=== PATIENT | female | born 1970 | race African-American/Black ===

== ENCOUNTER 2017-08-16 16:06 | Emergency (ER) | payer BC, SELFPAY ==
[2017-08-16] MEDS ORDERED: Morphine 10 MG/ML VIAL ONE (17:32)
[2017-08-16] MEDS ORDERED: Ondansetron ODT 4 MG TAB ONE (17:32)
[2017-08-16 19:47] LABS: Bilirubin Negative (Negative); Blood, Urine Negative (Negative); Clarity CLOUDY (Clear); Glucose, Urine (Dipstick) Negative (Negative); Leukocyte Moderate (Negative); Nitrite Negative (Negative); Protein, Urine (Dipstick) Negative (Neg-Trace); Specific Gravity, Urine 1.021 (1.002-1.036); Urobilinogen 0.2 mg/dL (0.2-1.0)
[2017-08-16 19:48] LABS: Pregnancy Test - Urine (BHCG) Negative (Negative); Pregu Control Background? CLEAR/WHITE (CLR/WHITE); Pregu Control Bar Appear? YES (CONTROL BAR); Specific Gravity 1.021 (1.002-1.036)
[2017-08-16 19:49] LABS: Bacteria/HPF 1+ HPF (None Seen); Hyaline Casts/LPF 7-10 HYALINE CAST LPF (0-3 Hyaline); Pathc Cast-AUWi Flag 0.54 (0-2.49)
== END 2017-08-16 20:20 | disposition home or self-care (01) ==
LOC: ERS 16:06
DX: N39.0 Urinary tract infection, site not specified (principal); I10 Essential (primary) hypertension; D64.9 Anemia, unspecified; Z79.82 Long term (current) use of aspirin; Z79.899 Other long term (current) drug therapy
CPT/HCPCS: 81003; 81015; 81025; 96372; J2270; Q0162

== ENCOUNTER 2017-08-24 12:25 | Emergency (ER) | payer SELFPAY | END 2017-08-24 15:36 | disposition home or self-care (01) | LOC: ERS 12:25 | DX: M54.42 Lumbago with sciatica, left side (principal); I10 Essential (primary) hypertension; X58.XXXA Exposure to other specified factors, initial encounter; Y93.G1 Activity, food preparation and clean up | CPT/HCPCS: 99281 ==

== ENCOUNTER 2017-12-03 21:32 | Emergency (ER) | payer SELFPAY ==
--- NOTE | 2017-12-03 22:35 | RAD ---
RADIOGRAPH RIGHT KNEE 4 VIEWS: DATE: 12/03/17 HISTORY: 47-year-old female with right knee pain. COMPARISON: None. FINDINGS: No fracture or dislocation. No joint effusion. No edema in Hoffa's fat pad. Patellofemoral compartment: Moderate DJD. Medial compartment: Severe joint space narrowing, moderate to large osteophytes, and at least mild sc lerosis. Lateral compartment: Joint space maintained. Moderate osteophytosis. The differences in joint spaces of the medial and lateral compartments result in varus angulation. Th ere is mild chronic lateral subluxation of the tibia relative to the femur. IMPRESSION: 1. Tricompartmental osteoarthrosis, worst in the medial compartment where it is severe. 2. Genu varus. POS: [facility]
[2017-12-03] MEDS ORDERED: Ketorolac Tromethamine 60 MG/2 ML VIAL ONE (22:51)
== END 2017-12-03 22:59 | disposition home or self-care (01) ==
LOC: ERS 21:32
DX: M17.11 Unilateral primary osteoarthritis, right knee (principal); I10 Essential (primary) hypertension; D64.9 Anemia, unspecified
CPT/HCPCS: 96372; J1885

== ENCOUNTER 2018-01-05 16:52 | Emergency (ER) | payer SELFPAY ==
--- NOTE | 2018-01-05 19:33 | RAD ---
PORTABLE CHEST ONE VIEW 01/05/18 at 7:10 p.m. HISTORY: Syncope. FINDINGS: Comparison is made with the exam of 11/16/13. The heart size is normal. The aorta is tortuous. The lungs are well expanded without focal areas of c onsolidation, pneumothoraces, abdirizak pulmonary edema or pleural effusions. IMPRESSION: No radiographic evidence of acute cardiopulmonary process. POS: [facility]
[2018-01-05 19:39] LABS: #Eosinphils 0.1 thou/uL (0.0-0.7); #Lymphocytes 3.4 thou/uL (1.20-3.40); #Monocytes 0.8 thou/uL (0.11-0.59); %Basophils 0.3 % (0.0-1.0); %Lymphocytes 27.7 % (21.0-51.0); %Monocytes 6.3 % (0.0-10.0); %Neutrophils 64.7 % (42.0-75.0); Hemoglobin 11.1 g/dL (12.0-16.0); Mean Corpuscular HGB CONC 31.6 g/dL (32.0-36.0); Mean Corpuscular Hemoglobin 22.9 pg (27.0-31.0); Mean Corpuscular Volume 72.5 fL (78.0-98.0); Mean Platelet Volume 11.7 fL (7.4-10.4); Platelet Count 253 thou/uL (130-400); RBC Distribution Width 16.7 % (11.5-14.5); Red Blood Cell (RBC) Count 4.87 mill/uL (4.20-5.40); White Blood Cell (WBC) Count 12.4 thou/uL (4.8-10.8)
[2018-01-05 19:54] LABS: ALT (SGPT) 14 U/L (8-55); AST (SGOT) 10 U/L (5-34); Albumin 4.2 g/dL (3.5-5.0); Alkaline Phosphatase 71 U/L (40-150); Anion Gap 15 mmol/L (10-20); BUN (Urea Nitrogen) 15 mg/dL (7.0-18.7); Bilirubin, Total 0.3 mg/dL (0.2-1.2); Calc. Creatinine Clearance 0 mL/min (70-130); Calcium 9.4 mg/dL (7.8-10.44); Carbon Dioxide 21 mmol/L (22-29); Chloride 107 mmol/L (98-107); Estimated GFR-MDRD Greater than 90; Globulin 3.3 g/dL (2.4-3.5); Glucose 89 mg/dL (70-105); Potassium 3.4 mmol/L (3.5-5.1); Protein, Total 7.5 g/dL (6.0-8.3); Sodium 140 mmol/L (136-145)
[2018-01-05 19:57] LABS: CKMB 1.1 ng/mL (0-6.6); Troponin I Less than 0.010 ng/mL (< 0.028)
[2018-01-05 19:59] LABS: Anisocytosis SLIGHT = 6-15 cells (100X) (0-5/hpf); Elliptocytes SLIGHT = 2-5 cells (100X) (0-1/hpf); Hypochromia SLIGHT = 6-15 cells (100X) (0-5/hpf); Large Platelets SLIGHT; MDiff Complete? YES; Microcytosis SLIGHT = 6-15 cells (100X) (0-5/hpf); Ovalocytes SLIGHT = 2-5 cells (100X) (0-1/hpf); PLT Morphology Comment Appears Adequate; Poikilocytosis SLIGHT = 6-15 cells (100X) (0-5/hpf); Polychromasia SLIGHT = 2-3 cells (100X) (0-2/hpf); Schistocytes SLIGHT = 2-5 cells (100X) (0-1/hpf)
[2018-01-05] MEDS ORDERED: HYDROcodone/Acetaminophen 5/325 mg Tablet ONE (20:33)
--- NOTE | 2018-01-05 20:36 | RAD ---
LUMBAR SPINE THREE VIEWS: 01/05/18 HISTORY: Low back pain after fall. FINDINGS/IMPRESSION: There are postop changes with posterior spinal fusion at L4-5 level with intradiscal prosthesis as we ll. Degenerative changes are present in the lower lumbar spine. No acute fracture or subluxation is seen. The metallic hardware is intact. POS: [facility]
[2018-01-05] MEDS ORDERED: Ondansetron ODT 4 MG TAB ONE (21:18)
--- NOTE | 2018-01-05 21:31 | RAD ---
LEFT HIP TWO VIEWS: 01/05/18 HISTORY: Left hip pain. fall. FINDINGS/IMPRESSION: Bony detail is suboptimal. No definite fracture or dislocation is seen. If there is concern for fract ure, further evaluation with CT scan should be performed. POS: [facility]
== END 2018-01-05 22:02 | disposition home or self-care (01) ==
LOC: ERS 16:52
DX: M54.5 Low back pain (principal); I10 Essential (primary) hypertension; D64.9 Anemia, unspecified
CPT/HCPCS: 36415; 71045; 72100; 80053; 82553; 84484; 85025; 93005; 96372; J2270; Q0162

== ENCOUNTER 2018-06-03 07:07 | Emergency (ER) | payer SELFPAY ==
[2018-06-03] MEDS ORDERED: Hydrochlorothiazide 25 MG TAB PO SCH (08:30)
[2018-06-03] MEDS ORDERED: Acetaminophen 500 MG TAB ONE (08:39)
--- NOTE | 2018-06-03 09:02 | RAD ---
LEFT KNEE FOUR VIEWS: History: Fall. Left knee pain. FINDINGS/IMPRESSION: Moderate-severe degenerative changes are present, also seen on the exam of 09-14-14. No fracture or dis location is identified. POS: [facility]
== END 2018-06-03 09:35 | disposition home or self-care (01) ==
LOC: ERS 07:07
DX: S83.92XA Sprain of unspecified site of left knee, initial encounter (principal); I10 Essential (primary) hypertension; D64.9 Anemia, unspecified; Z79.899 Other long term (current) drug therapy; X50.1XXA Overexertion from prolonged static or awkward postures, initial encounter

== ENCOUNTER 2018-10-29 19:51 | Emergency (ER) | payer SELFPAY ==
--- NOTE | 2018-10-29 20:50 | RAD ---
4 views left knee. HISTORY: Left knee pain after injury. AP, lateral and both oblique views left knee obtained. Severe left knee osteoarthritic changes seen. This involves the anterior, medial and lateral compartm ents. No evidence of acute fractures seen. IMPRESSION: left knee osteoarthritis.
== END 2018-10-29 21:20 | disposition home or self-care (01) ==
LOC: ERS 19:51
DX: S86.912A Strain of unspecified muscle(s) and tendon(s) at lower leg level, left leg, initial encounter (principal); M17.12 Unilateral primary osteoarthritis, left knee; I10 Essential (primary) hypertension; D64.9 Anemia, unspecified; Z79.899 Other long term (current) drug therapy; X50.9XXA Other and unspecified overexertion or strenuous movements or postures, initial encounter; Y93.01 Activity, walking, marching and hiking

== ENCOUNTER 2020-03-08 21:13 | Inpatient (IN) | payer OTHER ==
[2020-03-08 23:06] VITALS: BMI 49.5
[2020-03-08] MEDS ORDERED: Electrolyte Replacement Protoc 1 EACH EACH IVPB SCH (23:57)
[2020-03-09] MEDS ORDERED: Acetaminophen 650 MG/20.3 ML UDCUP PO PRN (00:06)
--- NOTE | 2020-03-09 00:08 | PDOC.HHP ---
Hospitalist HPI - History of Present Illness Oxygen desaturation History of Present Illness: 50-year-old -[place] woman with a history of anemia, chronic low back pain, osteoarthritis of the knee had a left total [facility]. Patient was supposed to have revision of the TKR done tomorrow but she became hypoxic. Checks x-ray demonstrated bilateral infiltrates. CTA thorax performed showed no evidence of pulmonary embolism but it did demonstrate bilateral infiltrates. There was a concern for COVID infection. Patient was requiring about 4 L of oxygen. She was therefore transferred here for further management. Patient seen and examined in the IMCU. She denied any shortness of breath. She denied any cough. She denied any fever or chills or chest pain. She is currently saturating at 100% on 4 L of oxygen. Hospitalist ROS - Review of Systems Other: She reports pain in the left knee. Except as documented, all other systems reviewed and negative. Hospitalist History - Past Medical History Cardiac: reports: CHF Heme/Onc: reports: Anemia NOS Musculoskeletal: reports: Chronic low back pain, Osteoarthritis - Past Surgical History Past Surgical History: reports: Hernia Repair, Total Knee Replacement, Other (Ad enoidectomy) - Family History Family History: reports: cardiac disorder, diabetes mellitus, hypertension - Social History Smoking Status: Never smoker Alcohol: reports: None Drugs: reports: none Living Situation: With Family - Exam General Appearance: NAD, awake alert Eye: PERRL, anicteric sclera ENT: normocephalic atraumatic, moist mucosa Neck: supple, symmetric, no JVD Heart: RRR, no murmur Respiratory: CTAB, no wheezes, no rales Gastrointestinal: soft, non-tender, non-distended Extremities: no cyanosis, no edema Skin: normal turgor Skin - other findings: Clean left total knee replacement surgical wound. Neurological: cranial nerve grossly intact, no focal deficits Musculoskeletal: normal tone Musculoskeletal - other findings: Left total knee replacement Hospitalist Results - Labs Additional comment: Hemoglobin 8.9 Potassium 2.6. Creatinine 1. - Radiology Interpretation Chest x-ray Status: report reviewed by me (Bilateral lung opacification, pulmonary vascular congestion with cephalization.) Hospitalist H&P A/P - Problem (1) Acute respiratory failure with hypoxia Code(s): J96.01 - ACUTE RESPIRATORY FAILURE WITH HYPOXIA Status: Acute Assessment and Plan: Possible causes: COVID-19 pneumonia, congestive heart failure or bacterial pneumonia. Noted patient prior echocardiogram in 2013 suggested EF of 40 to 45%, cardiomegaly and mildly reduced systolic function. Repeat echocardiogram on 02/16/2020 reported EF of 55 to 60%. (2) Bilateral pneumonia Code(s): J18.9 - PNEUMONIA, UNSPECIFIED ORGANISM Status: Acute (3) COVID-19 ruled out Code(s): Z03.818 - ENCNTR FOR OBS FOR SUSP EXPSR TO [facility] BIOL[facility] AGENTS RULED OUT Status: Acute (4) Status post total knee replacement Code(s): Z96.659 - PRESENCE OF UNSPECIFIED ARTIFICIAL KNEE JOINT Status: Acute (5) Hypokalemia Code(s): E87.6 - HYPOKALEMIA Status: Acute (6) Acute blood loss anemia Code(s): D62 - ACUTE POSTHEMORRHAGIC ANEMIA Status: Acute (7) Obesity, Class III, BMI 40-49.9 (morbid obesity) Code(s): E66.01 - MORBID (SEVERE) OBESITY DUE TO EXCESS CALORIES Status: Acute - Plan Plan: Admit to [facility] Oxygen supplementation. Obtain rapid COVID-19 test. Given congestive heart failure is high on the differential diagnosis, will empirically treat with IV Lasix. Check ESR, ferritin level, procalcitonin and CRP. Start IV Solu-Medrol Bronchodilators. Monitor and correct electrolytes. Consult to pulmonary. Monitor H&H and transfuse PRN for hemoglobin less than 8. Pain management as needed for TKR Consult orthopedic surgery for recommendation regarding mobility and timing of revision of TKR
[2020-03-09 01:28] LABS: Lactic Acid 0.6 mmol/L (0.5-2.2)
[2020-03-09 01:31] LABS: Anion Gap 14 mmol/L (10-20); BUN (Urea Nitrogen) 8 mg/dL (7.0-18.7); Calc. Creatinine Clearance 225 mL/min (70-130); Calcium 7.5 mg/dL (7.8-10.44); Carbon Dioxide 27 mmol/L (22-29); Chloride 104 mmol/L (98-107); Estimated GFR-MDRD Greater than 90; Glucose 114 mg/dL (70-105); Potassium 3.5 mmol/L (3.5-5.1); Sodium 141 mmol/L (136-145)
[2020-03-09] MEDS: Vancomycin 1 GM in Premix Bag 1 BAG IVPB SCH ×2 (01:43→15:24)
[2020-03-09] MEDS: methylPREDNISolone Sod Succ 40 MG VIAL IVP SCH ×4 (01:44→17:41)
[2020-03-09 02:04] LABS: SARS-CoV-2 NAA Rapid Test DETECTED (NotDetected)
[2020-03-09] MEDS: Furosemide 40 MG/4 ML VIAL SLOW IVP SCH ×2 (06:14→15:24)
[2020-03-09] MEDS ORDERED: Potassium Chloride 40 MEQ in Sodium Chloride 0.9% 250 ML 250 ML IVPB SCH ×2 (06:30→09:00)
--- NOTE | 2020-03-09 07:58 | RAD ---
EXAM: CHEST ONE VIEW HISTORY: Covid positive. COMPARISON: 03/08/2020 FINDINGS: Cardiac silhouette is magnified by projection and patient rotation but does appear mildly enlarged. T here are patchy areas of increased opacity in a peripheral predominance within the lungs bilaterally greater at the lung bases and right upper lung zone. Findings are worrisome for viral pne umonitis. No pleural effusion is seen. There are patchy increased opacities within each perihilar region as well. No other interval change. IMPRESSION: Patchy opacities within the lungs bilaterally worrisome for viral pneumonitis (Covid 19).
--- NOTE | 2020-03-09 08:48 | PDOC.HOSPP ---
- Subjective Encounter Date: 03/09/20 Encounter Time: 08:47 Subjective: Ms. Radford was seen today in follow-up of COVID pneumonia. She does not know where she was exposed. She says she started having cough abd shortness of breath yesterday. She was recently released from the hospital on March 06, after having a knee replacement done. - Objective Vital Signs & Weight: Vital Signs (12 hours) Pulse Ox 03/08/20 23:57 96 03/08/20 23:51 87 L Weight Weight 345 lb Most Recent Monitor Data Heart Rate from ECG 82 NIBP 126/85 NIBP BP-Mean 98 Respiration from ECG 22 SpO2 100 I&O: 03/08/20 03/09/20 03/10/20 06:59 06:59 06:59 Intake Total 540 Output Total 500 Balance 40 Result Diagrams: 03/09/20 00:58 Hospitalist ROS - Medication Medications: Active Medications Generic Name Dose Route Start Last Admin Trade Name Freq PRN Reason Stop Dose Admin Furosemide 40 mg 03/09/20 06:00 03/09/20 06:14 Furosemide 40 Mg/4 Ml Vial SLOW IVP 03/09/20 14:01 40 mg 0600,1400 NAHED Administration Levofloxacin 500 mg/ Device 100 mls @ 100 mls/hr 03/08/20 01:00 03/09/20 01:43 IVPB 100 mls Q24HR NAHED Administration Vancomycin HCl 1 gm/ Device 200 mls @ 200 mls/hr 03/09/20 02:00 03/09/20 01:43 IVPB 200 mls 0200,1400 NAHED Administration Methylprednisolone Sodium Succinate 40 mg 03/08/20 23:59 03/09/20 06:14 Methylprednisolone Sod Succ 40 Mg Vial IVP 40 mg Q6HR NAHED Administration - Exam Eye: PERRL, anicteric sclera Heart: RRR, no murmur, no gallops, no rubs, normal peripheral pulses Respiratory: rales (+ bibasilar rales, no wheezing or rhonchi) Gastrointestinal: soft, non-tender, non-distended, normal bowel sounds, no palpable masses, no hepatomegaly Extremities: no cyanosis, no edema Hosp A/P (1) Bilateral pneumonia Code(s): J18.9 - PNEUMONIA, UNSPECIFIED ORGANISM Status: Acute (2) Acute respiratory failure with hypoxia Code(s): J96.01 - ACUTE RESPIRATORY FAILURE WITH HYPOXIA Status: Acute (3) Hypertension Code(s): I10 - ESSENTIAL (PRIMARY) HYPERTENSION Status: Acute (4) COVID-19 virus infection Code(s): U07.1 - COVID-19 Status: Acute (5) Degenerative arthritis of lumbar spine Code(s): M47.816 - SPONDYLOSIS W/O MYELOPATHY OR RADICULOPATHY, LUMBAR REGION Status: Acute (6) Obesity, Class III, BMI 40-49.9 (morbid obesity) Code(s): E66.01 - MORBID (SEVERE) OBESITY DUE TO EXCESS CALORIES Status: Acute - Plan * Acute respiratory failure with hypoxemia due to COVID pneumonia. Continue s upportive care. Continue IV Steroids * Continue empiric treatment for superimposed bacterial pneumonia * She has an elevated D-Dimer- so will place on the intensified DVT Prophylaxis * HTN- blood pressure is stable- will re-start her home medications * DJD with recent left TKR- continue supportive care
[2020-03-09] MEDS: Enoxaparin Sodium 40 MG/0.4 ML SYRINGE SC SCH ×2 (09:37→21:53)
[2020-03-09] MEDS: Famotidine/PF 20 mg/2ml Vial SLOW IVP SCH ×2 (09:37→21:53)
[2020-03-09] MEDS: Bupropion 150 MG XL TAB PO SCH (09:37)
--- NOTE | 2020-03-09 10:17 | CON ---
DATE OF CONSULTATION: 03/09/2020 This is a 50-minute time, of that time greater than 50% spent with the patient and/or the patient's unit in the hospital. REASON FOR CONSULTATION: COVID-19 pneumonia. HISTORY OF PRESENT ILLNESS: The patient is a pleasant 50-year-old female, who had a knee replacement done a couple of days ago at the [facility]. She apparently developed some hypoxia in the postop period while staying in the hospital there. She tells me she was staying in the hospital there because a second operation is needed on the knee. Upon transfer here, she was requiring about 4 L nasal cannula. COVID test was positive. She has diffuse bilateral infiltrates on the x-ray. Surprisingly, she is doing quite well otherwise. PAST MEDICAL HISTORY: 1. Congestive heart failure. 2. Hypertension. 3. Osteoarthritis. 4. Anemia. PAST SURGICAL HISTORY: 1. Hernia repair. 2. Left total knee replacement. 3. Tonsillectomy and adenoidectomy. SOCIAL HISTORY: She lives alone. She is a never smoker. Does not consume alcohol. Does not use illicit drugs. MEDICATIONS: Prior to admission; 1. Trazodone. 2. Lisinopril/hydrochlorothiazide. 3. Bupropion. ALLERGIES: NONE. REVIEW OF SYSTEMS: Twelve-point review of systems is otherwise negative. PHYSICAL EXAMINATION: VITAL SIGNS: Temperature 98, pulse 82, blood pressure 126/85, O2 saturation 100% on 3 L. GENERAL: She is awake, alert, and in no distress. HEENT: Unremarkable. NECK: No adenopathy or JVD. LUNGS: She has some fine inspiratory crackles bilaterally. CARDIAC: S1 and S2. Regular. ABDOMEN: Soft, obese, nontender, and nondistended. EXTREMITIES: No clubbing, cyanosis, or edema. LABORATORY DATA: C-reactive protein is 19. Ferritin 413. D-dimer 3.0. Sodium 141, potassium 3.5, chloride 104, CO2 of 27, BUN 8, creatinine 0.7, and glucose 114. Chest x-ray shows diffuse bilateral infiltrates. ASSESSMENT: COVID-19 pneumonia with hypoxemia. PLAN: 1. I would keep her on the steroids. Additionally, I think she would be a candidate for Remdesivir, she seems to be early in the disease process. 2. Anticoagulate - she may need a higher dose than which she is currently given. 3. Monitor closely as she has severe risk factors for decompensation including obesity and hypertension. Job ID: [id number]
[2020-03-09 10:55] LABS: ALT (SGPT) 21 U/L (8-55); AST (SGOT) 25 U/L (5-34); Albumin 3.6 g/dL (3.5-5.0); Alkaline Phosphatase 60 U/L (40-110); Bilirubin, Direct 0.2 mg/dL (0.1-0.3); Bilirubin, Total 0.4 mg/dL (0.2-1.2); Protein, Total 6.8 g/dL (6.0-8.3)
[2020-03-09] MEDS: Lisinopril/Hydrochlorothiazide 20/25 mg Tablet PO SCH (11:30)
[2020-03-09] MEDS ORDERED: REMDESIVIR (EUA) 200 MG in Sodium Chloride 0.9% 250 ML 210 ML IV SCH (13:15)
[2020-03-09] MEDS: HYDROcodone/Acetaminophen 5/325 mg Tablet PO PRN (17:41)
[2020-03-09] MEDS ORDERED: FLU VACC QS2020-21(6MOS UP)/PF 60 MCG/0.5 ML SYRINGE IM ONE (21:00)
[2020-03-09] MEDS: traZODone HCl 50 MG TAB PO SCH (21:53)
[2020-03-10 00:45] LABS: Lactic Acid 0.8 mmol/L (0.5-2.2)
[2020-03-10] MEDS: methylPREDNISolone Sod Succ 40 MG VIAL IVP SCH ×4 (01:06→18:17)
[2020-03-10] MEDS: Vancomycin 1 GM in Premix Bag 1 BAG IVPB SCH ×2 (01:07→14:23)
[2020-03-10 04:00] LABS: ALT (SGPT) 17 U/L (8-55); AST (SGOT) 17 U/L (5-34); Albumin 3.4 g/dL (3.5-5.0); Alkaline Phosphatase 56 U/L (40-110); Band 9 % (5-11); Bilirubin, Direct 0.2 mg/dL (0.1-0.3); Bilirubin, Total 0.4 mg/dL (0.2-1.2); Elliptocytes MODERATE= 6-15 cells (100X) (0-1/hpf); Hemoglobin 9.5 g/dL (12.0-16.0); Lymphocytes 9 % (21-51); MDiff Complete? YES; Mean Corpuscular HGB CONC 31.1 g/dL (32.0-36.0); Mean Corpuscular Hemoglobin 22.4 pg (27.0-31.0); Mean Corpuscular Volume 71.8 fL (78.0-98.0); Microcytosis SLIGHT = 6-15 cells (100X) (0-5/hpf); Monocytes 4 % (0-10); Neutrophil 78 % (42-75); Platelet Count 136 thou/uL (130-400); Platelet Morphology Comment Appears Adequate; Protein, Total 6.7 g/dL (6.0-8.3); RBC Distribution Width 17.9 % (11.5-14.5); Red Blood Cell (RBC) Count 4.26 mill/uL (4.20-5.40); White Blood Cell (WBC) Count 8.7 thou/uL (4.8-10.8)
[2020-03-10 04:08] LABS: ALT (SGPT) 17 U/L (8-55); AST (SGOT) 16 U/L (5-34); Albumin 3.5 g/dL (3.5-5.0); Alkaline Phosphatase 57 U/L (40-110); Anion Gap 15 mmol/L (10-20); BUN (Urea Nitrogen) 14 mg/dL (7.0-18.7); Bilirubin, Total 0.4 mg/dL (0.2-1.2); Calc. Creatinine Clearance 213 mL/min (70-130); Calcium 8.3 mg/dL (7.8-10.44); Carbon Dioxide 28 mmol/L (22-29); Chloride 101 mmol/L (98-107); Estimated GFR-MDRD Greater than 90; Globulin 3.2 g/dL (2.4-3.5); Glucose 139 mg/dL (70-105); Potassium 3.6 mmol/L (3.5-5.1); Protein, Total 6.7 g/dL (6.0-8.3); Sodium 140 mmol/L (136-145)
[2020-03-10] MEDS: Bupropion 150 MG XL TAB PO SCH (08:11)
[2020-03-10] MEDS: Famotidine/PF 20 mg/2ml Vial SLOW IVP SCH ×2 (08:11→21:02)
[2020-03-10] MEDS: Enoxaparin Sodium 40 MG/0.4 ML SYRINGE SC SCH ×2 (08:12→21:02)
[2020-03-10] MEDS ORDERED: Non-Formulary Item 1 EACH (Remdesivir 200 MG) IV SCH (09:00)
[2020-03-10] MEDS: Lisinopril/Hydrochlorothiazide 20/25 mg Tablet PO SCH (09:19)
[2020-03-10] MEDS: HYDROcodone/Acetaminophen 5/325 mg Tablet PO PRN (09:51)
[2020-03-10] MEDS ORDERED: HYDROcodone/Chlorphen Polis 5 ML UDCUP PO PRN (11:06)
--- NOTE | 2020-03-10 11:41 | PRG ---
DATE OF SERVICE: 03/10/2020 SUBJECTIVE: She is doing reasonably well except for cough. OBJECTIVE: VITAL SIGNS: Temperature 98.8, pulse 80, blood pressure 120/91, and O2 saturation in the mid 90s on 4 L nasal cannula. HEENT: Unremarkable. NECK: No adenopathy or JVD. LUNGS: Inspiratory crackles bilaterally. CARDIAC: S1, S2. Regular. ABDOMEN: Soft. EXTREMITIES: Brace over her left knee. LABORATORY DATA: White blood cell count 8.7, hematocrit 30, and platelet count 136. D-dimer 3.1. Sodium 140, potassium 3.6, chloride 101, CO2 of 28, BUN 14, creatinine 0.7, glucose 139, ferritin 328. C-reactive protein 17. ASSESSMENT: COVID-19 pneumonia. PLAN: 1. Continue steroids, anticoagulation, and supplemental oxygen. 2. Continue remdesivir. Job ID: [id number]
[2020-03-10] MEDS: Diabetic Tussin 200 MG/10 ML UDCUP PO PRN (14:22)
[2020-03-10] MEDS: REMDESIVIR (EUA) 100 MG in Sodium Chloride 0.9% 250 ML 230 ML IV SCH (14:23)
--- NOTE | 2020-03-10 16:08 | PDOC.HOSPP ---
- Subjective Encounter Date: 03/10/20 Encounter Time: 16:00 Subjective: f/u for COVID-19 PNA on 2L/min NC receiving Remdesivir/Lovenox/Levaquin/Vancomycin/Solumedrol. + coughing - Objective Vital Signs & Weight: Vital Signs (12 hours) Temp 03/10/20 09:00 98.8 F Weight Weight 336 lb 12.8 oz Most Recent Monitor Data Heart Rate from ECG 77 NIBP 144/95 NIBP BP-Mean 111 Respiration from ECG 26 SpO2 100 I&O: 03/09/20 03/10/20 03/11/20 06:59 06:59 06:59 Intake Total 540 Output Total 578 5530 450 Balance 40 -4230 -450 Result Diagrams: 03/10/20 03:27 03/10/20 03:27 Additional Labs: Laboratory Tests 03/09/20 03/09/20 03/09/20 00:15 00:58 00:58 ESR Westergren D-Dimer 3.07 H Ferritin C-Reactive Protein 19.67 H SARS-CoV-2 Rap RNA(RT-PCR) DETECTED A* 03/09/20 03/10/20 03/10/20 00:58 00:11 00:11 ESR Westergren 71 75 D-Dimer Ferritin C-Reactive Protein 18.88 H SARS-CoV-2 Rap RNA(RT-PCR) 03/10/20 03/10/20 03/10/20 00:11 00:11 03:27 ESR Westergren D-Dimer 2.90 H Ferritin 382.09 H C-Reactive Protein 17.03 H SARS-CoV-2 Rap RNA(RT-PCR) 03/10/20 03/10/20 03:27 03:27 ESR Westergren D-Dimer 3.17 H Ferritin 328.05 H C-Reactive Protein SARS-CoV-2 Rap RNA(RT-PCR) Radiology Reviewed by me: Yes (PCXR - patchy infiltrates bilat) EKG Reviewed by me: Yes (Tele - SR) Hospitalist ROS - Medication Medications: Active Medications Generic Name Dose Route Start Last Admin Trade Name Freq PRN Reason Stop Dose Admin Hydrocodone Bitart/Acetaminophen 1 tab 03/09/20 17:22 03/10/20 09:51 Hydrocodone/Acetaminophen 5/325 Mg Tablet PO 1 tab Q4H PRN Administration Moderate to Severe Pain (6-10) Bupropion HCl 150 mg 03/09/20 09:00 03/10/20 08:11 Bupropion 150 Mg Xl Tab PO 150 mg DAILY NAHED Administration Enoxaparin Sodium 40 mg 03/09/20 09:00 03/10/20 08:12 Enoxaparin Sodium 40 Mg/0.4 Ml Syringe SC 40 mg 0900,2100 NAHED Administration Famotidine 20 mg 03/09/20 09:00 03/10/20 08:11 Famotidine/Pf 20 Mg/2ml Vial SLOW IVP 20 mg Q12HR NAHED Administration Guaifenesin 300 mg 03/10/20 12:02 03/10/20 14:22 Diabetic Tussin 200 Mg/10 Ml Udcup PO 300 mg Q4H PRN Administration COUGH/CONGESTION Lisinopril/HCTZ 1 tab 03/09/20 09:00 03/10/20 09:19 Lisinopril/Hydrochlorothiazide 20/25 Mg Tablet PO 1 tab DAILY NAHED Administration Levofloxacin 500 mg/ Device 100 mls @ 100 mls/hr 03/08/20 01:00 03/10/20 01:07 IVPB 100 mls Q24HR NAHED Administration Vancomycin HCl 1 gm/ Device 200 mls @ 200 mls/hr 03/09/20 02:00 03/10/20 14:23 IVPB 200 mls 0200,1400 NAHED Administration Remdesivir 100 mg/ Sodium 250 mls @ 250 mls/hr 03/10/20 13:15 03/10/20 14:23 Chloride IV 03/13/20 14:14 250 mls Q24H NAHED Administration Methylprednisolone Sodium Succinate 40 mg 03/08/20 23:59 03/10/20 12:23 Methylprednisolone Sod Succ 40 Mg Vial IVP 40 mg Q6HR NAHED Administration Sodium Chloride 10 ml 03/09/20 09:00 03/10/20 08:12 Flush - Normal Saline 10 Ml Syringe IVF 10 ml Q12HR NHAED Administration Trazodone HCl 50 mg 03/09/20 21:00 03/09/20 21:53 Trazodone Hcl 50 Mg Tab PO 50 mg HS NAHED Administration - Exam General Appearance: NAD, awake alert Eye: PERRL, anicteric sclera ENT: normocephalic atraumatic, no oropharyngeal lesions Neck: supple, symmetric, no JVD, no thyromegaly, no lymphadenopathy Heart: RRR, no murmur, no gallops, no rubs, normal peripheral pulses Heart - other findings: S1, S2 Respiratory: tachypneic Respiratory - other findings: few scattered rhonchi Gastrointestinal: soft, non-tender, non-distended, normal bowel sounds, no pal pable masses Extremities: no cyanosis Extremities - other findings: L knee with surgical changes Skin: normal turgor Neurological: cranial nerve grossly intact, no new deficit Musculoskeletal: normal tone, normal strength, no muscle wasting Psychiatric: normal affect, A&O x 3 Hosp A/P (1) Pneumonia due to COVID-19 virus Code(s): U07.1 - COVID-19; J12.89 - OTHER VIRAL PNEUMONIA Status: Acute Plan: Continue Remdesivir/Lovenox/Solumedrol/O2/Levaquin/Vancomycin, isolation protocol, add Albuterol MDI (2) Acute respiratory failure with hypoxia Code(s): J96.01 - ACUTE RESPIRATORY FAILURE WITH HYPOXIA Status: Acute Plan: See above (3) Hypertension Code(s): I10 - ESSENTIAL (PRIMARY) HYPERTENSION Status: Chronic Qualifiers: Hypertension type: essential hypertension Qualified Code(s): I10 - Essential (primary) hypertension Plan: Continue Lisinopril/HCTZ (4) Obesity, Class III, BMI 40-49.9 (morbid obesity) Code(s): E66.01 - MORBID (SEVERE) OBESITY DUE TO EXCESS CALORIES Status: Chronic (5) Status post total knee replacement Code(s): Z96.659 - PRESENCE OF UNSPECIFIED ARTIFICIAL KNEE JOINT Status: Acute Qualifiers: Laterality: left Qualified Code(s): Z96.652 - Presence of left artificial knee joint Plan: continue routine joint replacement protocol, NWB on LLE per Ortho - Plan continue antibiotics, PT/OT, medical social consultant, respiratory therapy, out of bed/ambulate, DVT proph w/SCDs Continue pulmonary support O2 via NC Add Albuterol MDI Continue Remdesivir/Lovenox/Solumedrol Robitussin DM 15ml po q4h PRN Isolation protocol AM lab: CMP, CBC, CRP, Ferrtin, D-dimer
[2020-03-10] MEDS ORDERED: Albuterol 200 PUFF (6.7GM INHALER) INH PRN (16:53)
[2020-03-10] MEDS: traZODone HCl 50 MG TAB PO SCH (21:02)
[2020-03-11] MEDS: methylPREDNISolone Sod Succ 40 MG VIAL IVP SCH ×4 (01:13→18:17)
[2020-03-11] MEDS: Vancomycin 1 GM in Premix Bag 1 BAG IVPB SCH ×2 (01:14→14:49)
[2020-03-11 04:13] LABS: ALT (SGPT) 14 U/L (8-55); AST (SGOT) 12 U/L (5-34); Albumin 3.4 g/dL (3.5-5.0); Alkaline Phosphatase 52 U/L (40-110); Anion Gap 14 mmol/L (10-20); BUN (Urea Nitrogen) 20 mg/dL (7.0-18.7); Bilirubin, Direct 0.2 mg/dL (0.1-0.3); Bilirubin, Total 0.5 mg/dL (0.2-1.2); Calc. Creatinine Clearance 193 mL/min (70-130); Calcium 8.5 mg/dL (7.8-10.44); Carbon Dioxide 30 mmol/L (22-29); Chloride 99 mmol/L (98-107); Estimated GFR-MDRD 87; Globulin 3.2 g/dL (2.4-3.5); Glucose 130 mg/dL (70-105); Potassium 3.5 mmol/L (3.5-5.1); Protein, Total 6.6 g/dL (6.0-8.3); Sodium 139 mmol/L (136-145)
[2020-03-11 04:18] LABS: Band 2 % (5-11); Hemoglobin 9.7 g/dL (12.0-16.0); Hypochromia SLIGHT = 6-15 cells (100X) (0-5/hpf); Lymphocytes 26 % (21-51); MDiff Complete? YES; Mean Corpuscular HGB CONC 31.4 g/dL (32.0-36.0); Mean Corpuscular Hemoglobin 22.5 pg (27.0-31.0); Mean Corpuscular Volume 71.7 fL (78.0-98.0); Mean Platelet Volume 13.5 fL (7.4-10.4); Monocytes 1 % (0-10); Neutrophil 71 % (42-75); Platelet Count 198 thou/uL (130-400); Platelet Morphology Comment Appears Adequate; RBC Distribution Width 17.9 % (11.5-14.5); Red Blood Cell (RBC) Count 4.32 mill/uL (4.20-5.40); White Blood Cell (WBC) Count 8.5 thou/uL (4.8-10.8)
[2020-03-11] MEDS ORDERED: Potassium Chloride 20 MEQ TAB PO SCH (06:30)
[2020-03-11] MEDS: Famotidine/PF 20 mg/2ml Vial SLOW IVP SCH ×2 (08:02→21:36)
[2020-03-11] MEDS: Enoxaparin Sodium 40 MG/0.4 ML SYRINGE SC SCH ×2 (08:02→21:36)
[2020-03-11] MEDS: Cholecalciferol (Vitamin D3) 400 UNITS TAB PO SCH (08:03)
[2020-03-11] MEDS: Bupropion 150 MG XL TAB PO SCH (08:03)
[2020-03-11] MEDS: Ascorbic Acid 500 mg Chewable Tablet PO SCH (08:03)
[2020-03-11] MEDS: Lisinopril/Hydrochlorothiazide 20/25 mg Tablet PO SCH (08:04)
[2020-03-11] MEDS: Zinc Sulfate 220 MG CAP PO SCH (08:13)
--- NOTE | 2020-03-11 10:08 | CON ---
DATE OF CONSULTATION: 03/10/2020 Ms. Radford recently underwent a left total knee replacement. The patient has additional work that needs to be done on her total knee. She developed hypoxemia the day after surgery, and a chest x-ray and CAT scan showed the patient developed COVID pneumonia. She was transferred to [facility] where she is now being taken care of by the boring machine operator, Dr. Mark. The patient has a cough, but otherwise is feeling okay. PLAN: The patient will require additional surgery on the left knee, but she will need to sufficiently recover from the COVID pneumonia before she undergoes general anesthetic and additional surgery on the knee; that will probably be a minimum of 1 week and possibly even 2 weeks, but we will keep track of her, and we will proceed with the left knee surgery when appropriate. Job ID: [id number]
[2020-03-11] MEDS ORDERED: Ondansetron PF 4 MG/2 ML Vial IVP PRN (10:16)
--- NOTE | 2020-03-11 11:46 | PRG ---
DATE OF SERVICE: 03/11/2020 SUBJECTIVE: The patient is doing quite well. Has no complaints. OBJECTIVE: VITAL SIGNS: O2 saturations 100% on 3 L, blood pressure 135/80, pulse 77, respirations 20. HEENT: Unremarkable. NECK: No adenopathy or JVD. CHEST: Clear to auscultation. CARDIAC: S1 and S2. Regular. ABDOMEN: Soft. EXTREMITIES: No edema. LABORATORY DATA: White blood cell count 8.5, hematocrit 31, and platelet count 198. D-dimer 3.02. C-reactive protein is down to 8. Sodium 139, potassium 3.5, chloride 99, CO2 of 30, BUN 20, creatinine 0.8, glucose 130. ASSESSMENT: 1. COVID-19 pneumonia. 2. Acute hypoxic respiratory failure. 3. Status post left knee replacement. PLAN: She can be transferred up to the [facility] telemetry unit. She will continue steroids, anticoagulation. She should be done with her remdesivir in 2 more days. Job ID: [id number]
[2020-03-11 11:50] LABS: SARS-CoV-2 IgG Ab Non-Reactive (NonReactive); SARS-CoV-2 IgG Index 0.24 S/CO (< 1.40)
[2020-03-11] MEDS: REMDESIVIR (EUA) 100 MG in Sodium Chloride 0.9% 250 ML 230 ML IV SCH (14:15)
[2020-03-11] MEDS: HYDROcodone/Acetaminophen 5/325 mg Tablet PO PRN (14:49)
--- NOTE | 2020-03-11 16:05 | PDOC.HOSPP ---
- Subjective Encounter Date: 03/11/20 Encounter Time: 15:45 Subjective: f/u for COVID-19 PNA and resp failure on O2 @ 3L/min. States SOB with mild movement or activity but overall feels better. Receiving Remdesivir/Lovenox/Solumedol. - Objective Vital Signs & Weight: Vital Signs (12 hours) Temp Pulse Resp BP BP Pulse Ox 03/11/20 12:50 98.8 F 79 22 H 114/58 L 90 L 03/11/20 08:04 67 126/88 03/11/20 08:00 100 03/11/20 05:11 95 Weight Weight 336 lb Most Recent Monitor Data Heart Rate from ECG 79 NIBP 144/120 NIBP BP-Mean 128 Respiration from ECG 31 SpO2 100 I&O: 03/10/20 03/11/20 03/12/20 06:59 06:59 06:59 Intake Total 240 100 Output Total 4230 1500 400 Balance -4230 -1260 -300 Result Diagrams: 03/11/20 03:33 03/11/20 03:33 Additional Labs: Laboratory Tests 03/09/20 03/09/20 03/09/20 00:15 00:58 00:58 ESR Westergren D-Dimer 3.07 H Ferritin C-Reactive Protein 19.67 H SARS-CoV-2 Rap RNA(RT-PCR) DETECTED A* 03/09/20 03/10/20 03/10/20 00:58 00:11 00:11 ESR Westergren 71 75 D-Dimer Ferritin C-Reactive Protein 18.88 H SARS-CoV-2 Rap RNA(RT-PCR) 03/10/20 03/10/20 03/10/20 00:11 00:11 03:27 ESR Westergren D-Dimer 2.90 H Ferritin 382.09 H C-Reactive Protein 17.03 H SARS-CoV-2 Rap RNA(RT-PCR) 03/10/20 03/10/20 03:27 03:27 ESR Westergren D-Dimer 3.17 H Ferritin 328.05 H C-Reactive Protein SARS-CoV-2 Rap RNA(RT-PCR) EKG Reviewed by me: Yes (Tele - SR) Hospitalist ROS - Medication Medications: Active Medications Generic Name Dose Route Start Last Admin Trade Name Freq PRN Reason Stop Dose Admin Hydrocodone Bitart/Acetaminophen 1 tab 03/09/20 17:22 03/11/20 14:49 Hydrocodone/Acetaminophen 5/325 Mg Tablet PO 1 tab Q4H PRN Administration Moderate to Severe Pain (6-10) Albuterol Sulfate 2 puff 03/10/20 16:53 03/10/20 21:22 Albuterol 200 Puff (6.7gm Inhaler) INH 2 puff [id number] PRN Administration Wheezing Ascorbic Acid 1,000 mg 03/11/20 09:00 03/11/20 08:03 Ascorbic Acid 500 Mg Chewable Tablet PO 1,000 mg DAILY NAHED Administration Bupropion HCl 150 mg 03/09/20 09:00 03/11/20 08:03 Bupropion 150 Mg Xl Tab PO 150 mg DAILY NAHED Administration Cholecalciferol 400 units 03/11/20 09:00 03/11/20 08:03 Cholecalciferol (Vitamin D3) 400 Units Tab PO 400 units DAILY NAHED Administration Enoxaparin Sodium 40 mg 03/09/20 09:00 03/11/20 08:02 Enoxaparin Sodium 40 Mg/0.4 Ml Syringe SC 40 mg 0900,2100 NAHED Administration Famotidine 20 mg 03/09/20 09:00 03/11/20 08:02 Famotidine/Pf 20 Mg/2ml Vial SLOW IVP 20 mg Q12HR NAHED Administration Guaifenesin 300 mg 03/10/20 12:02 03/10/20 14:22 Diabetic Tussin 200 Mg/10 Ml Udcup PO 300 mg Q4H PRN Administration COUGH/CONGESTION Lisinopril/HCTZ 1 tab 03/09/20 09:00 03/11/20 08:04 Lisinopril/Hydrochlorothiazide 20/25 Mg Tablet PO 1 tab DAILY NAHED Administration Levofloxacin 500 mg/ Device 100 mls @ 100 mls/hr 03/08/20 01:00 03/11/20 01:13 IVPB 100 mls Q24HR NAHED Administration Vancomycin HCl 1 gm/ Device 200 mls @ 200 mls/hr 03/09/20 02:00 03/11/20 14:49 IVPB 200 mls 0200,1400 NAHED Administration Remdesivir 100 mg/ Sodium 250 mls @ 250 mls/hr 03/10/20 13:15 03/11/20 14:15 Chloride IV 03/13/20 14:14 250 mls Q24H NAHED Administration Methylprednisolone Sodium Succinate 40 mg 03/08/20 23:59 03/11/20 11:56 Methylprednisolone Sod Succ 40 Mg Vial IVP 40 mg Q6HR NAHED Administration Ondansetron HCl 4 mg 03/11/20 10:16 03/11/20 10:28 Ondansetron Pf 4 Mg/2 Ml Vial IVP 4 mg Q4H PRN Administration Nausea/Vomiting Sodium Chloride 10 ml 03/09/20 09:00 03/11/20 08:05 Flush - Normal Saline 10 Ml Syringe IVF 10 ml Q12HR NAHED Administration Trazodone HCl 50 mg 03/09/20 21:00 03/10/20 21:02 Trazodone Hcl 50 Mg Tab PO 50 mg HS NAHED Administration Zinc Sulfate 220 mg 03/11/20 09:00 03/11/20 08:13 Zinc Sulfate 220 Mg Cap PO 220 mg DAILY NAHED Administration - Exam General Appearance: NAD, awake alert Eye: PERRL, anicteric sclera ENT: normocephalic atraumatic, no oropharyngeal lesions Neck: supple, symmetric, no JVD, no thyromegaly, no lymphadenopathy Heart: RRR, no murmur, no gallops, no rubs, normal peripheral pulses Heart - other findings: S1, S2 Respiratory: tachypneic Respiratory - other findings: diminished in bases, occ rhonchi Gastrointestinal: soft, non-tender, non-distended, normal bowel sounds, no palpable masses Gastrointestinal - other findings: obese Extremities: no cyanosis, no clubbing Extremities - other findings: L knee with post-surgical changes Skin: normal turgor Neurological: cranial nerve grossly intact, no new deficit Musculoskeletal: normal tone, generalized weakness Psychiatric: normal affect, A&O x 3 Hosp A/P (1) Pneumonia due to COVID-19 virus Code(s): U07.1 - COVID-19; J12.89 - OTHER VIRAL PNEUMONIA Status: Acute Plan: Continue Remdesivir/Solumedrol/Lovenox/Zinc/Vit C/Levaquin/Vancomycin (2) Acute respiratory failure with hypoxia Code(s): J96.01 - ACUTE RESPIRATORY FAILURE WITH HYPOXIA Status: Acute Plan: Continue O2 supplementation, may need home O2 (3) Hypertension Code(s): I10 - ESSENTIAL (PRIMARY) HYPERTENSION Status: Chronic Qualifiers: Hypertension type: essential hypertension Qualified Code(s): I10 - E ssential (primary) hypertension (4) Obesity, Class III, BMI 40-49.9 (morbid obesity) Code(s): E66.01 - MORBID (SEVERE) OBESITY DUE TO EXCESS CALORIES Status: Chronic (5) Status post total knee replacement Code(s): Z96.659 - PRESENCE OF UNSPECIFIED ARTIFICIAL KNEE JOINT Status: Acute Qualifiers: Laterality: left Qualified Code(s): Z96.652 - Presence of left artificial knee joint Plan: Pain control, NWB per Ortho - Plan continue antibiotics, PT/OT, 7th grade social studies teacher, respiratory therapy, DVT proph w/SCDs Continue pulmonary support O2 via NC Add Albuterol MDI Continue Remdesivir/Lovenox/Solumedrol Robitussin DM 15ml po q4h PRN Isolation protocol Continue Levaquin/Vancomycin AM lab: CMP, CBC, CRP, Ferrtin, D-dimer
[2020-03-11] MEDS: traZODone HCl 50 MG TAB PO SCH (21:37)
[2020-03-11] MEDS: Ibuprofen 600 MG TAB PO PRN (21:44)
[2020-03-12] MEDS: methylPREDNISolone Sod Succ 40 MG VIAL IVP SCH ×4 (00:41→18:58)
[2020-03-12] MEDS: HYDROcodone/Acetaminophen 5/325 mg Tablet PO PRN ×2 (01:25→20:23)
[2020-03-12 01:27] LABS: Vancomycin, Trough 8.3 ug/mL
[2020-03-12] MEDS: Vancomycin 1.5 GRAM/300 ML BAG 1.5 GM in Premix Bag 1 BAG IVPB SCH ×2 (02:02→15:23)
[2020-03-12 05:22] LABS: Band 9 % (5-11); Hemoglobin 9.7 g/dL (12.0-16.0); Lymphocytes 17 % (21-51); MDiff Complete? YES; Mean Corpuscular HGB CONC 31.3 g/dL (32.0-36.0); Mean Corpuscular Hemoglobin 22.3 pg (27.0-31.0); Mean Corpuscular Volume 71.2 fL (78.0-98.0); Mean Platelet Volume 12.4 fL (7.4-10.4); Metamyelocyte 1 % (0-0); Monocytes 5 % (0-10); Neutrophil 68 % (42-75); Platelet Count 223 thou/uL (130-400); Platelet Morphology Comment Appears Adequate; RBC Distribution Width 17.6 % (11.5-14.5); Red Blood Cell (RBC) Count 4.34 mill/uL (4.20-5.40); White Blood Cell (WBC) Count 8.6 thou/uL (4.8-10.8)
[2020-03-12 05:35] LABS: ALT (SGPT) 16 U/L (8-55); AST (SGOT) 11 U/L (5-34); Albumin 3.4 g/dL (3.5-5.0); Alkaline Phosphatase 47 U/L (40-110); Anion Gap 16 mmol/L (10-20); BUN (Urea Nitrogen) 26 mg/dL (7.0-18.7); Bilirubin, Direct 0.2 mg/dL (0.1-0.3); Bilirubin, Total 0.6 mg/dL (0.2-1.2); Calc. Creatinine Clearance 188 mL/min (70-130); Calcium 8.3 mg/dL (7.8-10.44); Carbon Dioxide 26 mmol/L (22-29); Chloride 101 mmol/L (98-107); Estimated GFR-MDRD 85; Glucose 139 mg/dL (70-105); Potassium 3.9 mmol/L (3.5-5.1); Protein, Total 6.4 g/dL (6.0-8.3); Sodium 139 mmol/L (136-145)
[2020-03-12] MEDS: Ascorbic Acid 500 mg Chewable Tablet PO SCH (08:17)
[2020-03-12] MEDS: Cholecalciferol (Vitamin D3) 400 UNITS TAB PO SCH (08:18)
[2020-03-12] MEDS: Zinc Sulfate 220 MG CAP PO SCH (08:18)
[2020-03-12] MEDS: Lisinopril/Hydrochlorothiazide 20/25 mg Tablet PO SCH (08:18)
[2020-03-12] MEDS: Bupropion 150 MG XL TAB PO SCH (08:18)
[2020-03-12] MEDS: Famotidine/PF 20 mg/2ml Vial SLOW IVP SCH ×2 (08:19→20:25)
[2020-03-12] MEDS: Enoxaparin Sodium 40 MG/0.4 ML SYRINGE SC SCH ×2 (08:19→20:25)
--- NOTE | 2020-03-12 10:40 | PRG ---
DATE OF SERVICE: 03/12/2020 SUBJECTIVE: The patient's records were reviewed. She is currently running O2 saturation of 100% on 4 L with a temperature of 98 and a blood pressure of 102/72. LABORATORY DATA: Labs indicate a white blood cell count of 8.6, hematocrit 30.9, and platelet count 223. D-dimer is down to 2.65. Sodium 139, potassium 3.9, BUN 26, creatinine 0.8, glucose 139. C-reactive protein is down to 3.7. ASSESSMENT: COVID-19 pneumonia with good response to remdesivir, steroids, and anticoagulation. PLAN: Her last day of remdesivir should be tomorrow. Continue steroids. Wean oxygen as tolerated. Job ID: [id number]
[2020-03-12] MEDS: REMDESIVIR (EUA) 100 MG in Sodium Chloride 0.9% 250 ML 230 ML IV SCH (14:04)
[2020-03-12] MEDS ORDERED: Senokot S 8.6-50 MG TAB PO SCH (16:00)
--- NOTE | 2020-03-12 16:02 | PDOC.HOSPP ---
- Subjective Encounter Date: 03/12/20 Encounter Time: 16:00 Subjective: f/u for COVID-19 PNA on O2 @ 3L/min NC. Feels good overall. No BM in about 3 days. - Objective Vital Signs & Weight: Vital Signs (12 hours) Temp Pulse Resp BP Pulse Ox 03/12/20 12:02 97.7 F 76 20 112/74 96 03/12/20 08:44 98.0 F 68 20 102/72 100 03/12/20 07:55 100 Weight Weight 336 lb Most Recent Monitor Data Heart Rate from ECG 79 NIBP 144/120 NIBP BP-Mean 128 Respiration from ECG 31 SpO2 100 I&O: 03/11/20 03/12/20 03/13/20 06:59 06:59 06:59 Intake Total 240 660 Output Total 1500 875 Balance -1260 -215 Result Diagrams: 03/12/20 04:38 03/12/20 04:38 Additional Labs: Accuchecks 03/12/20 12:13 POC Glucose 141 H Laboratory Tests 03/09/20 03/09/20 03/09/20 00:15 00:58 00:58 ESR Westergren D-Dimer 3.07 H Ferritin C-Reactive Protein 19.67 H Vancomycin Trough SARS-CoV-2 Rap RNA(RT-PCR) DETECTED A* 03/09/20 03/10/20 03/10/20 00:58 00:11 00:11 ESR Westergren 71 75 D-Dimer Ferritin C-Reactive Protein 18.88 H Vancomycin Trough SARS-CoV-2 Rap RNA(RT-PCR) 03/10/20 03/10/20 03/10/20 00:11 00:11 03:27 ESR Westergren D-Dimer 2.90 H Ferritin 382.09 H C-Reactive Protein 17.03 H Vancomycin Trough SARS-CoV-2 Rap RNA(RT-PCR) 03/10/20 03/10/20 03/12/20 03:27 03:27 01:04 ESR Westergren D-Dimer 3.17 H Ferritin 328.05 H C-Reactive Protein Vancomycin Trough 8.3 SARS-CoV-2 Rap RNA(RT-PCR) 03/12/20 03/12/20 03/12/20 04:38 04:38 04:38 ESR Westergren D-Dimer 2.65 H Ferritin 196.64 C-Reactive Protein 3.71 H Vancomycin Trough SARS-CoV-2 Rap RNA(RT-PCR) EKG Reviewed by me: Yes (Tele -SR) Hospitalist ROS - Medication Medications: Active Medications Generic Name Dose Route Start Last Admin Trade Name Freq PRN Reason Stop Dose Admin Hydrocodone Bitart/Acetaminophen 1 tab 03/09/20 17:22 03/12/20 01:25 Hydrocodone/Acetaminophen 5/325 Mg Tablet PO 1 tab Q4H PRN Administration Moderate to Severe Pain (6-10) Albuterol Sulfate 2 puff 03/10/20 16:53 03/10/20 21:22 Albuterol 200 Puff (6.7gm Inhaler) INH 2 puff [id number] PRN Administration Wheezing Ascorbic Acid 1,000 mg 03/11/20 09:00 03/12/20 08:17 Ascorbic Acid 500 Mg Chewable Tablet PO 1,000 mg DAILY NAHED Administration Bupropion HCl 150 mg 03/09/20 09:00 03/12/20 08:18 Bupropion 150 Mg Xl Tab PO 150 mg DAILY NAHED Administration Cholecalciferol 400 units 03/11/20 09:00 03/12/20 08:18 Cholecalciferol (Vitamin D3) 400 Units Tab PO 400 units DAILY NAHED Administration Enoxaparin Sodium 40 mg 03/09/20 09:00 03/12/20 08:19 Enoxaparin Sodium 40 Mg/0.4 Ml Syringe SC 40 mg 0900,2100 NAHED Administration Famotidine 20 mg 03/09/20 09:00 03/12/20 08:19 Famotidine/Pf 20 Mg/2ml Vial SLOW IVP 20 mg Q12HR NAHED Administration Guaifenesin 300 mg 03/10/20 12:02 03/10/20 14:22 Diabetic Tussin 200 Mg/10 Ml Udcup PO 300 mg Q4H PRN Administration COUGH/CONGESTION Lisinopril/HCTZ 1 tab 03/09/20 09:00 03/12/20 08:18 Lisinopril/Hydrochlorothiazide 20/25 Mg Tablet PO 1 tab DAILY NAHED Administration Levofloxacin 500 mg/ Device 100 mls @ 100 mls/hr 03/08/20 01:00 03/12/20 00:4 0 IVPB 100 mls Q24HR NAHED Administration Remdesivir 100 mg/ Sodium 250 mls @ 250 mls/hr 03/10/20 13:15 03/12/20 14:04 Chloride IV 03/13/20 14:14 250 mls Q24H NAHED Administration Vancomycin HCl 1.5 gm/ Device 300 mls @ 200 mls/hr 03/12/20 02:00 03/12/20 15:23 IVPB 300 mls 0200,1400 NAHED Administration Ibuprofen 600 mg 03/09/20 17:22 03/11/20 21:44 Ibuprofen 600 Mg Tab PO 600 mg Q6H PRN Administration Fever>101/(Mi/Mod/Sev) Pain Methylprednisolone Sodium Succinate 40 mg 03/08/20 23:59 03/12/20 12:17 Methylprednisolone Sod Succ 40 Mg Vial IVP 40 mg Q6HR NAHED Administration Ondansetron HCl 4 mg 03/11/20 10:16 03/11/20 10:28 Ondansetron Pf 4 Mg/2 Ml Vial IVP 4 mg Q4H PRN Administration Nausea/Vomiting Sodium Chloride 10 ml 03/09/20 09:00 03/12/20 08:19 Flush - Normal Saline 10 Ml Syringe IVF 10 ml Q12HR NAHED Administration Trazodone HCl 50 mg 03/09/20 21:00 03/11/20 21:37 Trazodone Hcl 50 Mg Tab PO 50 mg HS NAHED Administration Zinc Sulfate 220 mg 03/11/20 09:00 03/12/20 08:18 Zinc Sulfate 220 Mg Cap PO 220 mg DAILY NAHED Administration - Exam General Appearance: NAD, awake alert Eye: PERRL, anicteric sclera ENT: normocephalic atraumatic, no oropharyngeal lesions Neck: supple, symmetric, no JVD, no thyromegaly, no lymphadenopathy Heart: RRR, no gallops, no rubs, normal peripheral pulses Respiratory: CTAB, no rales, no ronchi, normal chest expansion Gastrointestinal: soft, non-tender, non-distended, normal bowel sounds, no palpable masses Extremities: no cyanosis, no clubbing, no edema Skin: normal turgor, no lesions Neurological: cranial nerve grossly intact, no new deficit Musculoskeletal: normal tone, normal strength, no muscle wasting Psychiatric: normal affect, A&O x 3 Hosp A/P (1) Pneumonia due to COVID-19 virus Code(s): U07.1 - COVID-19; J12.89 - OTHER VIRAL PNEUMONIA Status: Acute Plan: Continue Remdesivir/Solumedrol/Lovenox/Levaquin/Vancomycin/O2 support (2) Acute respiratory failure with hypoxia Code(s): J96.01 - ACUTE RESPIRATORY FAILURE WITH HYPOXIA Status: Acute (3) Hypertension Code(s): I10 - ESSENTIAL (PRIMARY) HYPERTENSION Status: Chronic Qualifiers: Hypertension type: essential hypertension Qualified Code(s): I10 - Essential (primary) hypertension (4) Obesity, Class III, BMI 40-49.9 (morbid obesity) Code(s): E66.01 - MORBID (SEVERE) OBESITY DUE TO EXCESS CALORIES Status: Chronic (5) Status post total knee replacement Code(s): Z96.659 - PRESENCE OF UNSPECIFIED ARTIFICIAL KNEE JOINT Status: Acute Qualifiers: Laterality: left Qualified Code(s): Z96.652 - Presence of left artificial knee joint (6) Constipation Code(s): K59.00 - CONSTIPATION, UNSPECIFIED Status: Acute Qualifiers: Constipation type: slow transit constipation Qualified Code(s): K59.01 - Slow transit constipation Plan: Start Senokot-S BID - Plan continue antibiotics, nursing home social worker, respiratory therapy, out of bed/ambulate, DVT proph w/SCDs Continue pulmonary support O2 via NC, may need home O2 Add Albuterol MDI Continue Remdesivir/Lovenox/Solumedrol Robitussin DM 15ml po q4h PRN Isolation protocol Continue Levaquin/Vancomycin AM lab: CMP, CBC, CRP, Ferrtin, D-dimer Likely home in 24h
[2020-03-12] MEDS: Senokot S 8.6-50 MG TAB PO SCH (20:23)
[2020-03-12] MEDS: Diabetic Tussin 200 MG/10 ML UDCUP PO PRN (20:24)
[2020-03-12] MEDS: traZODone HCl 50 MG TAB PO SCH (20:35)
[2020-03-13] MEDS: Vancomycin 1.5 GRAM/300 ML BAG 1.5 GM in Premix Bag 1 BAG IVPB SCH ×2 (01:28→15:25)
[2020-03-13] MEDS: methylPREDNISolone Sod Succ 40 MG VIAL IVP SCH ×4 (01:28→18:00)
[2020-03-13 06:23] LABS: Band 3 % (5-11); Hypochromia SLIGHT = 6-15 cells (100X) (0-5/hpf); Lymphocytes 10 % (21-51); MDiff Complete? YES; Mean Corpuscular HGB CONC 29.8 g/dL (32.0-36.0); Mean Corpuscular Hemoglobin 21.4 pg (27.0-31.0); Mean Corpuscular Volume 71.6 fL (78.0-98.0); Mean Platelet Volume 13.6 fL (7.4-10.4); Metamyelocyte 3 % (0-0); Monocytes 3 % (0-10); Neutrophil 81 % (42-75); Platelet Count 244 thou/uL (130-400); Platelet Morphology Comment Appears Adequate; Red Blood Cell (RBC) Count 4.68 mill/uL (4.20-5.40); White Blood Cell (WBC) Count 11.3 thou/uL (4.8-10.8)
[2020-03-13 06:36] LABS: ALT (SGPT) 14 U/L (8-55); AST (SGOT) 10 U/L (5-34); Albumin 3.5 g/dL (3.5-5.0); Alkaline Phosphatase 46 U/L (40-110); Anion Gap 15 mmol/L (10-20); BUN (Urea Nitrogen) 26 mg/dL (7.0-18.7); Bilirubin, Direct 0.2 mg/dL (0.1-0.3); Bilirubin, Total 0.7 mg/dL (0.2-1.2); Calc. Creatinine Clearance 193 mL/min (70-130); Calcium 8.7 mg/dL (7.8-10.44); Carbon Dioxide 27 mmol/L (22-29); Chloride 101 mmol/L (98-107); Estimated GFR-MDRD 87; Globulin 3.1 g/dL (2.4-3.5); Glucose 134 mg/dL (70-105); Potassium 4.1 mmol/L (3.5-5.1); Protein, Total 6.6 g/dL (6.0-8.3); Sodium 139 mmol/L (136-145)
[2020-03-13] MEDS: Enoxaparin Sodium 40 MG/0.4 ML SYRINGE SC SCH ×2 (08:32→20:24)
[2020-03-13] MEDS: Zinc Sulfate 220 MG CAP PO SCH (08:32)
[2020-03-13] MEDS: Senokot S 8.6-50 MG TAB PO SCH ×2 (08:32→20:24)
[2020-03-13] MEDS: Ascorbic Acid 500 mg Chewable Tablet PO SCH (08:32)
[2020-03-13] MEDS: Famotidine/PF 20 mg/2ml Vial SLOW IVP SCH ×3 (08:33→20:22)
[2020-03-13] MEDS: Cholecalciferol (Vitamin D3) 400 UNITS TAB PO SCH (08:33)
[2020-03-13] MEDS: Bupropion 150 MG XL TAB PO SCH (08:33)
[2020-03-13] MEDS: Lisinopril/Hydrochlorothiazide 20/25 mg Tablet PO SCH (08:33)
[2020-03-13 13:52] LABS: Vancomycin, Trough 14.6 ug/mL
[2020-03-13] MEDS: HYDROcodone/Acetaminophen 5/325 mg Tablet PO PRN ×2 (14:06→20:23)
[2020-03-13] MEDS: REMDESIVIR (EUA) 100 MG in Sodium Chloride 0.9% 250 ML 230 ML IV SCH (15:25)
--- NOTE | 2020-03-13 18:43 | PDOC.HOSPP ---
- Subjective Encounter Date: 03/13/20 Encounter Time: : Subjective: f/u for COVID-19 PNA on O2 via NC @ 2L/min NC. Feels much better overall and coughing less. No fever and good appetite. - Objective Vital Signs & Weight: Vital Signs (12 hours) Temp Pulse Resp BP Pulse Ox 03/13/20 08:33 71 03/13/20 08:00 98.1 F 112 H 20 127/87 92 L Weight Weight 336 lb Most Recent Monitor Data Heart Rate from ECG 79 NIBP 144/120 NIBP BP-Mean 128 Respiration from ECG 31 SpO2 100 I&O: 03/12/20 03/13/20 03/14/20 06:59 06:59 06:59 Intake Total 660 400 Output Total 875 1550 Balance -215 -1150 Result Diagrams: 03/13/20 05:29 03/13/20 05:29 Additional Labs: Laboratory Tests 03/09/20 03/09/20 03/09/20 00:15 00:58 00:58 ESR Westergren D-Dimer 3.07 H Ferritin C-Reactive Protein 19.67 H Vancomycin Trough SARS-CoV-2 Rap RNA(RT-PCR) DETECTED A* 03/09/20 03/10/20 03/10/20 00:58 00:11 00:11 ESR Westergren 71 75 D-Dimer Ferritin C-Reactive Protein 18.88 H Vancomycin Trough SARS-CoV-2 Rap RNA(RT-PCR) 03/10/20 03/10/20 03/10/20 00:11 00:11 03:27 ESR Westergren D-Dimer 2.90 H Ferritin 382.09 H C-Reactive Protein 17.03 H Vancomycin Trough SARS-CoV-2 Rap RNA(RT-PCR) 03/10/20 03/10/20 03/12/20 03:27 03:27 01:04 ESR Westergren D-Dimer 3.17 H Ferritin 328.05 H C-Reactive Protein Vancomycin Trough 8.3 SARS-CoV-2 Rap RNA(RT-PCR) 03/12/20 03/12/20 03/12/20 04:38 04:38 04:38 ESR Westergren D-Dimer 2.65 H Ferritin 196.64 C-Reactive Protein 3.71 H Vancomycin Trough SARS-CoV-2 Rap RNA(RT-PCR) Hospitalist ROS - Medication Medications: Active Medications Generic Name Dose Route Start Last Admin Trade Name Freq PRN Reason Stop Dose Admin Hydrocodone Bitart/Acetaminophen 1 tab 03/09/20 17:22 03/13/20 14:06 Hydrocodone/Acetaminophen 5/325 Mg Tablet PO 1 tab Q4H PRN Administration Moderate to Severe Pain (6-10) Albuterol Sulfate 2 puff 03/10/20 16:53 03/10/20 21:22 Albuterol 200 Puff (6.7gm Inhaler) INH 2 puff [id number] PRN Administration Wheezing Ascorbic Acid 1,000 mg 03/11/20 09:00 03/13/20 08:32 Ascorbic Acid 500 Mg Chewable Tablet PO 1,000 mg DAILY NAHED Administration Bupropion HCl 150 mg 03/09/20 09:00 03/13/20 08:33 Bupropion 150 Mg Xl Tab PO 150 mg DAILY NAHED Administration Cholecalciferol 400 units 03/11/20 09:00 03/13/20 08:33 Cholecalciferol (Vitamin D3) 400 Units Tab PO 400 units DAILY NAHED Administration Enoxaparin Sodium 40 mg 03/09/20 09:00 03/13/20 08:32 Enoxaparin Sodium 40 Mg/0.4 Ml Syringe SC 40 mg 0900,2100 NAHED Administration Famotidine 20 mg 03/09/20 09:00 03/13/20 09:06 Famotidine/Pf 20 Mg/2ml Vial SLOW IVP Not Given Q12HR NAHED Guaifenesin 300 mg 03/10/20 12:02 03/12/20 20:24 Diabetic Tussin 200 Mg/10 Ml Udcup PO 300 mg Q4H PRN Administration COUGH/CONGESTION Lisinopril/HCTZ 1 tab 03/09/20 09:00 03/13/20 08:33 Lisinopril/Hydrochlorothiazide 20/25 Mg Tablet PO 1 tab DAILY NAHED Administration Levofloxacin 500 mg/ Device 100 mls @ 100 mls/hr 03/08/20 01:00 03/13/20 01:28 IVPB 100 mls Q24HR NAHED Administration Vancomycin HCl 1.5 gm/ Device 300 mls @ 200 mls/hr 03/12/20 02:00 03/13/20 15:25 IVPB Not Given 0200,1400 NAHED Ibuprofen 600 mg 03/09/20 17:22 03/11/20 21:44 Ibuprofen 600 Mg Tab PO 600 mg Q6H PRN Administration Fever>101/(Mi/Mod/Sev) Pain Methylprednisolone Sodium Succinate 40 mg 03/08/20 23:59 03/13/20 15:25 Methylprednisolone Sod Succ 40 Mg Vial IVP Not Given Q6HR NAHED Ondansetron HCl 4 mg 03/11/20 10:16 03/11/20 10:28 Ondansetron Pf 4 Mg/2 Ml Vial IVP 4 mg Q4H PRN Administration Nausea/Vomiting Senna/Docusate Sodium 1 tab 03/12/20 21:00 03/13/20 08:32 Senokot S 8.6-50 Mg Tab PO 1 tab BID NAHED Administration Sodium Chloride 10 ml 03/09/20 09:00 03/12/20 20:25 Flush - Normal Saline 10 Ml Syringe IVF 10 ml Q12HR NAHED Administration Trazodone HCl 50 mg 03/09/20 21:00 03/12/20 20:35 Trazodone Hcl 50 Mg Tab PO 50 mg HS NAHED Administration Zinc Sulfate 220 mg 03/11/20 09:00 03/13/20 08:32 Zinc Sulfate 220 Mg Cap PO 220 mg DAILY NAHED Administration - Exam General Appearance: NAD, awake alert General - other findings: smiling, responsive Eye: PERRL, anicteric sclera ENT: normocephalic atraumatic, no oropharyngeal lesions Neck: supple, symmetric, no JVD, no thyromegaly, no lymphadenopathy Heart: RRR, no murmur, no gallops, no rubs, normal peripheral pulses Heart - other findings: S1, S2 Respiratory - other findings: few scattered rhonchi, diminished in bases Gastrointestinal: soft, non-tender, non-distended, normal bowel sounds, no palpable masses Gastrointestinal - other findings: obese Extremities: no cyanosis Extremities - other findings: L knee brace immobilizer in place, BERONICA wrap on knee wound Skin: normal turgor Neurological: cranial nerve grossly intact, no new deficit Musculoskeletal: normal tone, normal strength Psychiatric: normal affect, A&O x 3 Hosp A/P (1) Pneumonia due to COVID-19 virus Code(s): U07.1 - COVID-19; J12.89 - OTHER VIRAL PNEUMONIA Status: Acute Plan: Stable currently, continue supportive mgmt, Prednisone/Albuterol/Lovenox/O2 (2) Acute respiratory failure with hypoxia Code(s): J96.01 - ACUTE RESPIRATORY FAILURE WITH HYPOXIA Status: Acute Plan: Home O2 coordination in progress (3) Hypertension Code(s): I10 - ESSENTIAL (PRIMARY) HYPERTENSION Status: Chronic Qualifiers: Hypertension type: essential hypertension Qualified Code(s): I10 - Essential (primary) hypertension (4) Obesity, Class III, BMI 40-49.9 (morbid obesity) Code(s): E66.01 - MORBID (SEVERE) OBESITY DUE TO EXCESS CALORIES Status: Chronic (5) Status post total knee replacement Code(s): Z96.659 - PRESENCE OF UNSPECIFIED ARTIFICIAL KNEE JOINT Status: Acute Qualifiers: Laterality: left Qualified Code(s): Z96.652 - Presence of left artificial knee joint (6) Constipation Code(s): K59.00 - CONSTIPATION, UNSPECIFIED Status: Acute Qualifiers: Constipation type: slow transit constipation Qualified Code(s): K59.01 - Slow transit constipation Plan: Mag citrate today - Plan continue antibiotics, PT/OT, social human services assistants, respiratory therapy, DVT proph w/SCDs Continue pulmonary support O2 via NC, home O2 coordination in progress Continue Albuterol MDI Continue Remdesivir/Lovenox/Solumedrol Robitussin DM 15ml po q4h PRN Isolation protocol Continue Levaquin/Vancomycin Attempt d/c home but likely in am with O2 equipment Likely home in 24h
[2020-03-13] MEDS: traZODone HCl 50 MG TAB PO SCH (20:22)
[2020-03-13] MEDS: Diabetic Tussin 200 MG/10 ML UDCUP PO PRN (20:23)
[2020-03-14] MEDS: Vancomycin 1.5 GRAM/300 ML BAG 1.5 GM in Premix Bag 1 BAG IVPB SCH ×2 (01:49→13:47)
[2020-03-14] MEDS: HYDROcodone/Acetaminophen 5/325 mg Tablet PO PRN ×5 (02:02→20:05)
[2020-03-14 05:53] LABS: Band 2 % (5-11); Hemoglobin 9.8 g/dL (12.0-16.0); Lymphocytes 10 % (21-51); MDiff Complete? YES; Mean Corpuscular HGB CONC 31.4 g/dL (32.0-36.0); Mean Corpuscular Hemoglobin 22.3 pg (27.0-31.0); Mean Corpuscular Volume 71.2 fL (78.0-98.0); Mean Platelet Volume 11.1 fL (7.4-10.4); Metamyelocyte 2 % (0-0); Monocytes 11 % (0-10); Neutrophil 74 % (42-75); Platelet Count 257 thou/uL (130-400); Platelet Morphology Comment Appears Adequate; RBC Distribution Width 18.7 % (11.5-14.5); Reactive Lymphocytes 1 % (0-10); Red Blood Cell (RBC) Count 4.37 mill/uL (4.20-5.40)
[2020-03-14 06:01] LABS: ALT (SGPT) 19 U/L (8-55); AST (SGOT) 15 U/L (5-34); Albumin 3.3 g/dL (3.5-5.0); Alkaline Phosphatase 46 U/L (40-110); Anion Gap 15 mmol/L (10-20); BUN (Urea Nitrogen) 35 mg/dL (7.0-18.7); Bilirubin, Total 0.7 mg/dL (0.2-1.2); CRP (Inflammatory) 1.46 mg/dL (= or < 0.5); Calc. Creatinine Clearance 149 mL/min (70-130); Calcium 8.2 mg/dL (7.8-10.44); Carbon Dioxide 27 mmol/L (22-29); Chloride 102 mmol/L (98-107); Estimated GFR-MDRD 64; Globulin 2.9 g/dL (2.4-3.5); Glucose 100 mg/dL (70-105); Potassium 3.2 mmol/L (3.5-5.1); Protein, Total 6.2 g/dL (6.0-8.3); Sodium 141 mmol/L (136-145)
[2020-03-14] MEDS: Lisinopril/Hydrochlorothiazide 20/25 mg Tablet PO SCH (09:39)
[2020-03-14] MEDS: Senokot S 8.6-50 MG TAB PO SCH ×2 (09:39→20:05)
[2020-03-14] MEDS: predniSONE 20 MG TAB PO SCH (09:40)
[2020-03-14] MEDS: Ascorbic Acid 500 mg Chewable Tablet PO SCH (09:40)
[2020-03-14] MEDS: Bupropion 150 MG XL TAB PO SCH (09:40)
[2020-03-14] MEDS: Zinc Sulfate 220 MG CAP PO SCH (09:41)
[2020-03-14] MEDS: Enoxaparin Sodium 40 MG/0.4 ML SYRINGE SC SCH ×2 (09:41→20:05)
[2020-03-14] MEDS: Cholecalciferol (Vitamin D3) 400 UNITS TAB PO SCH (09:41)
[2020-03-14] MEDS: Famotidine/PF 20 mg/2ml Vial SLOW IVP SCH ×2 (09:41→19:56)
[2020-03-14] MEDS ORDERED: Potassium Chloride 20 MEQ TAB PO SCH (10:15)
--- NOTE | 2020-03-14 10:21 | DIS ---
DATE OF ADMISSION: 03/08/2020 DATE OF DISCHARGE: 03/14/2020 HOSPITAL COURSE: The patient's discharge was held for approximately 24 hours due to coordination for outpatient oxygen services. The patient remained clinically stable over the last 24 hours, maintaining an oxygen requirement of 2 L/minute by nasal cannula. I have examined the patient at the time of discharge and discussed followup instructions. The patient verbalizes understanding and agreement, ready for discharge on 03/14/2020. Please see dictated discharge summary, 03/13/2020 for full details on discharge medications and followup instructions. Job ID: [id number]
--- NOTE | 2020-03-14 18:09 | PDOC.HOSPP ---
- Subjective Encounter Date: 03/14/20 Encounter Time: 09:00 Subjective: f/u for COVID-19 PNA on O2 @ 2L/min NC. Plan for returning home with O2 supplementation today. - Objective Vital Signs & Weight: Vital Signs (12 hours) Temp Pulse Resp BP Pulse Ox 03/14/20 09:50 98.0 F 79 20 103/72 93 L 03/14/20 09:39 73 Weight Weight 336 lb Most Recent Monitor Data Heart Rate from ECG 79 NIBP 144/120 NIBP BP-Mean 128 Respiration from ECG 31 SpO2 100 I&O: 03/13/20 03/14/20 03/15/20 06:59 06:59 06:59 Intake Total 400 Output Total 1550 800 600 Balance -1150 -800 -600 Result Diagrams: 03/14/20 05:24 03/14/20 05:24 Additional Labs: Laboratory Tests 03/09/20 03/09/20 03/09/20 00:15 00:58 00:58 ESR Westergren D-Dimer 3.07 H Ferritin C-Reactive Protein 19.67 H Vancomycin Trough SARS-CoV-2 Rap RNA(RT-PCR) DETECTED A* 03/09/20 03/10/20 03/10/20 00:58 00:11 00:11 ESR Westergren 71 75 D-Dimer Ferritin C-Reactive Protein 18.88 H Vancomycin Trough SARS-CoV-2 Rap RNA(RT-PCR) 03/10/20 03/10/20 03/10/20 00:11 00:11 03:27 ESR Westergren D-Dimer 2.90 H Ferritin 382.09 H C-Reactive Protein 17.03 H Vancomycin Trough SARS-CoV-2 Rap RNA(RT-PCR) 03/10/20 03/10/20 03/12/20 03:27 03:27 01:04 ESR Westergren D-Dimer 3.17 H Ferritin 328.05 H C-Reactive Protein Vancomycin Trough 8.3 SARS-CoV-2 Rap RNA(RT-PCR) 03/12/20 03/12/20 03/12/20 04:38 04:38 04:38 ESR Westergren D-Dimer 2.65 H Ferritin 196.64 C-Reactive Protein 3.71 H Vancomycin Trough SARS-CoV-2 Rap RNA(RT-PCR) Hospitalist ROS - Medication Medications: Active Medications Generic Name Dose Route Start Last Admin Trade Name Freq PRN Reason Stop Dose Admin Hydrocodone Bitart/Acetaminophen 1 tab 03/09/20 17:22 03/14/20 13:47 Hydrocodone/Acetaminophen 5/325 Mg Tablet PO 1 tab Q4H PRN Administration Moderate to Severe Pain (6-10) Albuterol Sulfate 2 puff 03/10/20 16:53 03/10/20 21:22 Albuterol 200 Puff (6.7gm Inhaler) INH 2 puff [id number] PRN Administration Wheezing Ascorbic Acid 1,000 mg 03/11/20 09:00 03/14/20 09:40 Ascorbic Acid 500 Mg Chewable Tablet PO 1,000 mg DAILY NAHED Administration Bupropion HCl 150 mg 03/09/20 09:00 03/14/20 09:40 Bupropion 150 Mg Xl Tab PO 150 mg DAILY NAHED Administration Cholecalciferol 400 units 03/11/20 09:00 03/14/20 09:41 Cholecalciferol (Vitamin D3) 400 Units Tab PO 400 units DAILY NAHED Administration Enoxaparin Sodium 40 mg 03/09/20 09:00 03/14/20 09:41 Enoxaparin Sodium 40 Mg/0.4 Ml Syringe SC 40 mg 0900,2100 NAHED Administration Famotidine 20 mg 03/09/20 09:00 03/14/20 09:41 Famotidine/Pf 20 Mg/2ml Vial SLOW IVP 20 mg Q12HR NAHED Administration Guaifenesin 300 mg 03/10/20 12:02 03/13/20 20:23 Diabetic Tussin 200 Mg/10 Ml Udcup PO 300 mg Q4H PRN Administration COUGH/CONGESTION Lisinopril/HCTZ 1 tab 03/09/20 09:00 03/14/20 09:39 Lisinopril/Hydrochlorothiazide 20/25 Mg Tablet PO 1 tab DAILY NAHED Administration Levofloxacin 500 mg/ Device 100 mls @ 100 mls/hr 03/08/20 01:00 03/14/20 00:39 IVPB 100 mls Q24HR NAHED Administration Vancomycin HCl 1.5 gm/ Device 300 mls @ 200 mls/hr 03/12/20 02:00 03/14/20 13:47 IVPB 300 mls 0200,1400 NAHED Administration Ibuprofen 600 mg 03/09/20 17:22 03/11/20 21:44 Ibuprofen 600 Mg Tab PO 600 mg Q6H PRN Administration Fever>101/(Mi/Mod/Sev) Pain Ondansetron HCl 4 mg 03/11/20 10:16 03/11/20 10:28 Ondansetron Pf 4 Mg/2 Ml Vial IVP 4 mg Q4H PRN Administration Nausea/Vomiting Prednisone 40 mg 03/14/20 09:00 03/14/20 09:40 Prednisone 20 Mg Tab PO 40 mg DAILY NAHED Administration Senna/Docusate Sodium 1 tab 03/12/20 21:00 03/14/20 09:39 Senokot S 8.6-50 Mg Tab PO 1 tab BID NAHED Administration Sodium Chloride 10 ml 03/09/20 09:00 03/14/20 09:44 Flush - Normal Saline 10 Ml Syringe IVF 10 ml Q12HR NAHED Administration Trazodone HCl 50 mg 03/09/20 21:00 03/13/20 20:22 Trazodone Hcl 50 Mg Tab PO 50 mg HS NAHED Administration Zinc Sulfate 220 mg 03/11/20 09:00 03/14/20 09:41 Zinc Sulfate 220 Mg Cap PO 220 mg DAILY NAHED Administration - Exam General Appearance: NAD, awake alert Eye: PERRL, anicteric sclera ENT: normocephalic atraumatic, no oropharyngeal lesions Neck: supple, symmetric, no JVD, no thyromegaly, no lymphadenopathy Heart: RRR, no murmur, no gallops, no rubs, normal peripheral pulses Heart - other findings: S1, S2 Respiratory: no tachypnea Respiratory - other findings: diminished in bases, occ rhonchi Gastrointestinal: soft, non-tender, non-distended, normal bowel sounds, no palpable masses Gastrointestinal - other findings: obese Extremities: no cyanosis Extremities - other findings: L knee edema with surgical dressing in place Skin: normal turgor Neurological: cranial nerve grossly intact, no new deficit Musculoskeletal: normal tone, generalized weakness Psychiatric: A&O x 3, flat affect Hosp A/P (1) Pneumonia due to COVID-19 virus Code(s): U07.1 - COVID-19; J12.89 - OTHER VIRAL PNEUMONIA Status: Acute Plan: Stable currently, s/p Remdesivir, continue Prednisone/Levaquin/Vit C/Zinc (2) Acute respiratory failure with hypoxia Code(s): J96.01 - ACUTE RESPIRATORY FAILURE WITH HYPOXIA Status: Acute Plan: O2 supplementation, setting up home O2 (3) Hypertension Code(s): I10 - ESSENTIAL (PRIMARY) HYPERTENSION Status: Chronic Qualifiers: Hypertension type: essential hypertension Qualified Code(s): I10 - Essent ial (primary) hypertension (4) Obesity, Class III, BMI 40-49.9 (morbid obesity) Code(s): E66.01 - MORBID (SEVERE) OBESITY DUE TO EXCESS CALORIES Status: Chronic (5) Status post total knee replacement Code(s): Z96.659 - PRESENCE OF UNSPECIFIED ARTIFICIAL KNEE JOINT Status: Acute Qualifiers: Laterality: left Qualified Code(s): Z96.652 - Presence of left artificial knee joint Plan: Limited mobility given NWB status for LLE, RW for ambulation (6) Constipation Code(s): K59.00 - CONSTIPATION, UNSPECIFIED Status: Acute Qualifiers: Constipation type: slow transit constipation Qualified Code(s): K59.01 - Slow transit constipation - Plan continue antibiotics, PT/OT, pediatric social worker, respiratory therapy, out of bed/ambulate, DVT proph w/SCDs Continue pulmonary support O2 via NC, home O2 coordination in progress Continue Albuterol MDI Continue Prednisone/Levaquin/Lovenox Robitussin DM 15ml po q4h PRN Isolation protocol Attempt d/c home but likely in am with O2 equipment Dispo unclear given limited mobility and lack of assistance for home Hold d/c pending assistance from CM
[2020-03-14] MEDS: traZODone HCl 50 MG TAB PO SCH (20:05)
[2020-03-14] MEDS: Diabetic Tussin 200 MG/10 ML UDCUP PO PRN (20:05)
[2020-03-15] MEDS: HYDROcodone/Acetaminophen 5/325 mg Tablet PO PRN ×4 (02:30→21:29)
[2020-03-15] MEDS: Enoxaparin Sodium 40 MG/0.4 ML SYRINGE SC SCH ×2 (08:18→21:31)
[2020-03-15] MEDS: Famotidine/PF 20 mg/2ml Vial SLOW IVP SCH (08:19)
[2020-03-15] MEDS: predniSONE 20 MG TAB PO SCH (08:20)
[2020-03-15] MEDS: Senokot S 8.6-50 MG TAB PO SCH ×3 (08:20→21:29)
[2020-03-15] MEDS: Cholecalciferol (Vitamin D3) 400 UNITS TAB PO SCH (08:20)
[2020-03-15] MEDS: Bupropion 150 MG XL TAB PO SCH (08:20)
[2020-03-15] MEDS: Ascorbic Acid 500 mg Chewable Tablet PO SCH ×2 (08:21→16:18)
[2020-03-15] MEDS: Lisinopril/Hydrochlorothiazide 20/25 mg Tablet PO SCH ×2 (08:23→16:18)
[2020-03-15] MEDS: Zinc Sulfate 220 MG CAP PO SCH (08:24)
[2020-03-15 08:36] LABS: ALT (SGPT) 21 U/L (8-55); AST (SGOT) 13 U/L (5-34); Albumin 3.5 g/dL (3.5-5.0); Alkaline Phosphatase 48 U/L (40-110); Anion Gap 14 mmol/L (10-20); BUN (Urea Nitrogen) 28 mg/dL (7.0-18.7); Bilirubin, Total 0.8 mg/dL (0.2-1.2); Calc. Creatinine Clearance 159 mL/min (70-130); Calcium 8.3 mg/dL (7.8-10.44); Carbon Dioxide 27 mmol/L (22-29); Chloride 103 mmol/L (98-107); Estimated GFR-MDRD 70; Globulin 2.9 g/dL (2.4-3.5); Glucose 92 mg/dL (70-105); Potassium 3.6 mmol/L (3.5-5.1); Protein, Total 6.4 g/dL (6.0-8.3); Sodium 140 mmol/L (136-145)
[2020-03-15 08:55] LABS: Hemoglobin 10.5 g/dL (12.0-16.0); Mean Corpuscular HGB CONC 31.2 g/dL (32.0-36.0); Mean Corpuscular Hemoglobin 22.3 pg (27.0-31.0); Mean Corpuscular Volume 71.3 fL (78.0-98.0); Mean Platelet Volume 13.6 fL (7.4-10.4); Platelet Count 224 thou/uL (130-400); RBC Distribution Width 19.1 % (11.5-14.5); Red Blood Cell (RBC) Count 4.72 mill/uL (4.20-5.40); White Blood Cell (WBC) Count 10.1 thou/uL (4.8-10.8)
[2020-03-15 08:56] LABS: Anisocytosis SLIGHT = 6-15 cells (100X) (0-5/hpf); Elliptocytes SLIGHT = 2-5 cells (100X) (0-1/hpf); Large Platelets MARKED; Lymphocytes 29 % (21-51); MDiff Complete? YES; Microcytosis SLIGHT = 6-15 cells (100X) (0-5/hpf); Monocytes 6 % (0-10); Neutrophil 63 % (42-75); Platelet Morphology Comment Appears Adequate; Reactive Lymphocytes 2 % (0-10)
--- NOTE | 2020-03-15 19:36 | PDOC.HOSPP ---
- Subjective Encounter Date: 03/15/20 Encounter Time: 19:30 Subjective: f/u for COVID-19 PNA and hypoxic resp failure s/p Remdesivir. Feels tired but worked with PT for mobilization. - Objective Vital Signs & Weight: Vital Signs (12 hours) Temp Pulse Pulse Resp BP BP Pulse Ox 03/15/20 15:15 100 109/56 L 03/15/20 08:15 98.2 F 79 18 109/60 96 Pulse Ox 03/15/20 15:15 95 03/15/20 08:15 Weight Weight 333 lb 1.6 oz Most Recent Monitor Data Heart Rate from ECG 79 NIBP 144/120 NIBP BP-Mean 128 Respiration from ECG 31 SpO2 100 I&O: 03/14/20 03/15/20 03/16/20 06:59 06:59 06:59 Intake Total 450 800 Output Total 800 600 Balance -800 -150 800 Result Diagrams: 03/15/20 08:07 03/15/20 08:07 Hospitalist ROS - Medication Medications: Active Medications Generic Name Dose Route Start Last Admin Trade Name Freq PRN Reason Stop Dose Admin Hydrocodone Bitart/Acetaminophen 1 tab 03/09/20 17:22 03/15/20 16:50 Hydrocodone/Acetaminophen 5/325 Mg Tablet PO 1 tab Q4H PRN Administration Moderate to Severe Pain (6-10) Albuterol Sulfate 2 puff 03/10/20 16:53 03/10/20 21:22 Albuterol 200 Puff (6.7gm Inhaler) INH 2 puff [id number] PRN Administration Wheezing Ascorbic Acid 1,000 mg 03/11/20 09:00 03/15/20 16:18 Ascorbic Acid 500 Mg Chewable Tablet PO Not Given DAILY NAHED Bupropion HCl 150 mg 03/09/20 09:00 03/15/20 08:20 Bupropion 150 Mg Xl Tab PO 150 mg DAILY NAHED Administration Cholecalciferol 400 units 03/11/20 09:00 03/15/20 08:20 Cholecalciferol (Vitamin D3) 400 Units Tab PO 400 units DAILY NAHED Administration Enoxaparin Sodium 40 mg 03/09/20 09:00 03/15/20 08:18 Enoxaparin Sodium 40 Mg/0.4 Ml Syringe SC 40 mg 0900,2099 NAHED Administration Famotidine 20 mg 03/09/20 09:00 03/15/20 08:19 Famotidine/Pf 20 Mg/2ml Vial SLOW IVP 20 mg Q12HR NAHED Administration Guaifenesin 300 mg 03/10/20 12:02 03/14/20 20:05 Diabetic Tussin 200 Mg/10 Ml Udcup PO 300 mg Q4H PRN Administration COUGH/CONGESTION Lisinopril/HCTZ 1 tab 03/09/20 09:00 03/15/20 16:18 Lisinopril/Hydrochlorothiazide 20/25 Mg Tablet PO Not Given DAILY NAHED Ibuprofen 600 mg 03/09/20 17:22 03/11/20 21:44 Ibuprofen 600 Mg Tab PO 600 mg Q6H PRN Administration Fever>101/(Mi/Mod/Sev) Pain Levofloxacin 500 mg 03/14/20 20:00 03/14/20 20:05 Levofloxacin 500 Mg Tab PO 500 mg 2000 NAHED Administration Ondansetron HCl 4 mg 03/11/20 10:16 03/11/20 10:28 Ondansetron Pf 4 Mg/2 Ml Vial IVP 4 mg Q4H PRN Administration Nausea/Vomiting Prednisone 40 mg 03/14/20 09:00 03/15/20 08:20 Prednisone 20 Mg Tab PO 40 mg DAILY NAHED Administration Senna/Docusate Sodium 1 tab 03/12/20 21:00 03/15/20 16:15 Senokot S 8.6-50 Mg Tab PO Not Given BID NAHED Sodium Chloride 10 ml 03/09/20 09:00 03/15/20 08:22 Flush - Normal Saline 10 Ml Syringe IVF 10 ml Q12HR NAHED Administration Trazodone HCl 50 mg 03/09/20 21:00 03/14/20 20:05 Trazodone Hcl 50 Mg Tab PO 50 mg HS NAHED Administration Zinc Sulfate 220 mg 03/11/20 09:00 03/15/20 08:24 Zinc Sulfate 220 Mg Cap PO 220 mg DAILY NAHED Administration - Exam General Appearance: NAD, awake alert Eye: PERRL, anicteric sclera ENT: normocephalic atraumatic, no oropharyngeal lesions Neck: supple, symmetric, no JVD, no thyromegaly, no lymphadenopathy Heart: RRR, no murmur, no gallops, no rubs, normal peripheral pulses Heart - other findings: S1, S2 Respiratory: tachypneic Respiratory - other findings: diminished in bases bilat Gastrointestinal: soft, non-tender, non-distended, normal bowel sounds, no palpable masses Gastrointestinal - other findings: obese Extremities: no cyanosis, no clubbing Extremities - other findings: LLE with surgical dressing/knee immobilizer in place Skin: normal turgor Neurological: cranial nerve grossly intact, no new deficit Musculoskeletal: normal tone, generalized weakness Psychiatric: normal affect, A&O x 3 Hosp A/P (1) Pneumonia due to COVID-19 virus Code(s): U07.1 - COVID-19; J12.89 - OTHER VIRAL PNEUMONIA Status: Acute Plan: Continue O2/Prednisone/Levaquin/Lovenox (2) Acute respiratory failure with hypoxia Code(s): J96.01 - ACUTE RESPIRATORY FAILURE WITH HYPOXIA Status: Acute (3) Hypertension Code(s): I10 - ESSENTIAL (PRIMARY) HYPERTENSION Status: Chronic Qualifiers: Hypertension type: essential hypertension Qualified Code(s): I10 - Essential (primary) hypertension (4) Obesity, Class III, BMI 40-49.9 (morbid obesity) Code(s): E66.01 - MORBID (SEVERE) OBESITY DUE TO EXCESS CALORIES Status: Chronic (5) Status post total knee replacement Code(s): Z96.659 - PRESENCE OF UNSPECIFIED ARTIFICIAL KNEE JOINT Status: Acute Qualifiers: Laterality: left Qualified Code(s): Z96.652 - Presence of left artificial knee joint (6) Constipation Code(s): K59.00 - CONSTIPATION, UNSPECIFIED Status: Acute Qualifiers: Constipation type: slow transit constipation Qualified Code(s): K59.01 - Slow transit constipation - Plan continue antibiotics, PT/OT, web content & social media manager, respiratory therapy, out of bed/ambulate, DVT proph w/SCDs Continue pulmonary support O2 via NC, home O2 coordination in progress Continue Albuterol MDI Continue Prednisone/Levaquin/Lovenox Robitussin DM 15ml po q4h PRN Isolation protocol Attempt d/c home but likely in am with O2 equipment Dispo unclear given limited mobility and lack of assistance for home Rodríguez catheter due to NWB status LLE
[2020-03-15] MEDS: traZODone HCl 50 MG TAB PO SCH (21:30)
[2020-03-15] MEDS: Famotidine 20 MG TAB PO SCH (21:30)
[2020-03-15] MEDS: Diabetic Tussin 200 MG/10 ML UDCUP PO PRN (21:31)
[2020-03-16] MEDS: HYDROcodone/Acetaminophen 5/325 mg Tablet PO PRN ×4 (05:29→21:30)
[2020-03-16 06:26] LABS: Hemoglobin 10.1 g/dL (12.0-16.0); Mean Corpuscular HGB CONC 31.6 g/dL (32.0-36.0); Mean Corpuscular Hemoglobin 22.6 pg (27.0-31.0); Mean Corpuscular Volume 71.5 fL (78.0-98.0); Platelet Count 251 thou/uL (130-400); RBC Distribution Width 19.1 % (11.5-14.5); Red Blood Cell (RBC) Count 4.49 mill/uL (4.20-5.40); White Blood Cell (WBC) Count 10.5 thou/uL (4.8-10.8)
[2020-03-16 06:40] LABS: ALT (SGPT) 23 U/L (8-55); AST (SGOT) 14 U/L (5-34); Albumin 3.5 g/dL (3.5-5.0); Alkaline Phosphatase 48 U/L (40-110); Anion Gap 12 mmol/L (10-20); BUN (Urea Nitrogen) 27 mg/dL (7.0-18.7); Bilirubin, Total 0.8 mg/dL (0.2-1.2); CRP (Inflammatory) 2.03 mg/dL (= or < 0.5); Calc. Creatinine Clearance 184 mL/min (70-130); Calcium 8.4 mg/dL (7.8-10.44); Carbon Dioxide 30 mmol/L (22-29); Chloride 106 mmol/L (98-107); Estimated GFR-MDRD 82; Globulin 2.8 g/dL (2.4-3.5); Glucose 90 mg/dL (70-105); Potassium 3.7 mmol/L (3.5-5.1); Protein, Total 6.3 g/dL (6.0-8.3); Sodium 144 mmol/L (136-145)
[2020-03-16 06:50] LABS: Anisocytosis SLIGHT = 6-15 cells (100X) (0-5/hpf); Band 3 % (5-11); Elliptocytes SLIGHT = 2-5 cells (100X) (0-1/hpf); Eosinophils 1 % (0-10); Large Platelets SLIGHT; Lymphocytes 28 % (21-51); MDiff Complete? YES; Microcytosis SLIGHT = 6-15 cells (100X) (0-5/hpf); Monocytes 15 % (0-10); Neutrophil 53 % (42-75); Platelet Morphology Comment Appears Adequate
[2020-03-16] MEDS: Ascorbic Acid 500 mg Chewable Tablet PO SCH (08:17)
[2020-03-16] MEDS: Senokot S 8.6-50 MG TAB PO SCH ×3 (08:17→21:29)
[2020-03-16] MEDS: Cholecalciferol (Vitamin D3) 400 UNITS TAB PO SCH (09:32)
[2020-03-16] MEDS: Enoxaparin Sodium 40 MG/0.4 ML SYRINGE SC SCH ×2 (09:32→21:27)
[2020-03-16] MEDS: Lisinopril/Hydrochlorothiazide 20/25 mg Tablet PO SCH (09:33)
[2020-03-16] MEDS: predniSONE 20 MG TAB PO SCH (09:34)
[2020-03-16] MEDS: Famotidine 20 MG TAB PO SCH ×2 (09:34→21:27)
[2020-03-16] MEDS: Bupropion 150 MG XL TAB PO SCH (09:34)
[2020-03-16] MEDS: Famotidine/PF 20 mg/2ml Vial SLOW IVP SCH (09:35)
[2020-03-16] MEDS: Zinc Sulfate 220 MG CAP PO SCH (09:37)
--- NOTE | 2020-03-16 18:00 | PDOC.HOSPP ---
- Subjective Encounter Date: 03/16/20 Encounter Time: 18:00 Subjective: f/u for COVID-19 PNA s/p Remdesivir receiving Prednisone/O2 currently. - Objective Vital Signs & Weight: Vital Signs (12 hours) Pulse Ox 03/16/20 09:20 98 Weight Weight 336 lb 5.536 oz Most Recent Monitor Data Heart Rate from ECG 79 NIBP 144/120 NIBP BP-Mean 128 Respiration from ECG 31 SpO2 100 I&O: 03/15/20 03/16/20 03/17/20 06:59 06:59 06:59 Intake Total 450 1300 Output Total 600 650 Balance -150 650 Result Diagrams: 03/16/20 05:43 03/16/20 05:43 Hospitalist ROS - Medication Medications: Active Medications Generic Name Dose Route Start Last Admin Trade Name Freq PRN Reason Stop Dose Admin Hydrocodone Bitart/Acetaminophen 1 tab 03/09/20 17:22 03/16/20 16:16 Hydrocodone/Acetaminophen 5/325 Mg Tablet PO 1 tab Q4H PRN Administration Moderate to Severe Pain (6-10) Albuterol Sulfate 2 puff 03/10/20 16:53 03/10/20 21:22 Albuterol 200 Puff (6.7gm Inhaler) INH 2 puff [id number] PRN Administration Wheezing Ascorbic Acid 1,000 mg 03/11/20 09:00 03/16/20 08:17 Ascorbic Acid 500 Mg Chewable Tablet PO Not Given DAILY NAHED Bupropion HCl 150 mg 03/09/20 09:00 03/16/20 09:34 Bupropion 150 Mg Xl Tab PO 150 mg DAILY NAHED Administration Cholecalciferol 400 units 03/11/20 09:00 03/16/20 09:32 Cholecalciferol (Vitamin D3) 400 Units Tab PO 400 units DAILY NAHED Administration Enoxaparin Sodium 40 mg 03/09/20 09:00 03/16/20 09:32 Enoxaparin Sodium 40 Mg/0.4 Ml Syringe SC 40 mg 0900,2100 NAHED Administration Famotidine 20 mg 03/15/20 21:00 03/16/20 09:34 Famotidine 20 Mg Tab PO 20 mg Q12HR NAHED Administration Guaifenesin 300 mg 03/10/20 12:02 03/15/20 21:31 Diabetic Tussin 200 Mg/10 Ml Udcup PO 300 mg Q4H PRN Administration COUGH/CONGESTION Lisinopril/HCTZ 1 tab 03/09/20 09:00 03/16/20 09:33 Lisinopril/Hydrochlorothiazide 20/25 Mg Tablet PO 1 tab DAILY NAHED Administration Ibuprofen 600 mg 03/09/20 17:22 03/11/20 21:44 Ibuprofen 600 Mg Tab PO 600 mg Q6H PRN Administration Fever>101/(Mi/Mod/Sev) Pain Levofloxacin 500 mg 03/14/20 20:00 03/15/20 21:29 Levofloxacin 500 Mg Tab PO 500 mg 2000 NAHED Administration Ondansetron HCl 4 mg 03/11/20 10:16 03/11/20 10:28 Ondansetron Pf 4 Mg/2 Ml Vial IVP 4 mg Q4H PRN Administration Nausea/Vomiting Prednisone 40 mg 03/14/20 09:00 03/16/20 09:34 Prednisone 20 Mg Tab PO 40 mg DAILY NAHED Administration Senna/Docusate Sodium 1 tab 03/12/20 21:00 03/16/20 09:51 Senokot S 8.6-50 Mg Tab PO 1 tab BID NAHED Administration Sodium Chloride 10 ml 03/09/20 09:00 03/16/20 08:18 Flush - Normal Saline 10 Ml Syringe IVF Not Given Q12HR NAHED Trazodone HCl 50 mg 03/09/20 21:00 03/15/20 21:30 Trazodone Hcl 50 Mg Tab PO 50 mg HS NAHED Administration Zinc Sulfate 220 mg 03/11/20 09:00 03/16/20 09:37 Zinc Sulfate 220 Mg Cap PO 220 mg DAILY NAHED Administration - Exam General Appearance: NAD, awake alert Eye: PERRL, anicteric sclera ENT: normocephalic atraumatic, no oropharyngeal lesions Neck: supple, symmetric, no JVD, no thyromegaly, no lymphadenopathy Heart: RRR, no murmur, no gallops, no rubs, normal peripheral pulses Heart - other findings: S1, S2 Respiratory: no wheezes, no tachypnea Respiratory - other findings: few scattered rhonchi Gastrointestinal: soft, non-tender, non-distended, normal bowel sounds, no palpable masses Gastrointestinal - other findings: obese Extremities: no cyanosis, no clubbing Extremities - other findings: L knee with post-surgical changes/dressing in place Skin: normal turgor Neurological: cranial nerve grossly intact, no new deficit Musculoskeletal: normal tone, normal strength, no muscle wasting Psychiatric: normal affect, A&O x 3 Hosp A/P (1) Pneumonia due to COVID-19 virus Code(s): U07.1 - COVID-19; J12.89 - OTHER VIRAL PNEUMONIA Status: Acute Plan: Continue Prednisone/O2/Lovenox (2) Acute respiratory failure with hypoxia Code(s): J96.01 - ACUTE RESPIRATORY FAILURE WITH HYPOXIA Status: Acute Plan: Continue O2 @ 3L/min NC (3) Hypertension Code(s): I10 - ESSENTIAL (PRIMARY) HYPERTENSION Status: Chronic Qualifiers: Hypertension type: essential hypertension Qualified Code(s): I10 - Essential (primary) hypertension (4) Obesity, Class III, BMI 40-49.9 (morbid obesity) Code(s): E66.01 - MORBID (SEVERE) OBESITY DUE TO EXCESS CALORIES Status: Chronic (5) Status post total knee replacement Code(s): Z96.659 - PRESENCE OF UNSPECIFIED ARTIFICIAL KNEE JOINT Status: Acute Qualifiers: Laterality: left Qualified Code(s): Z96.652 - Presence of left artificial knee joint Plan: PT/OT for mobilization, NWB for LLE, plan for revision of TKA after convalescing from COVID (6) Constipation Code(s): K59.00 - CONSTIPATION, UNSPECIFIED Status: Acute Qualifiers: Constipation type: slow transit constipation Qualified Code(s): K59.01 - Slow transit constipation - Plan PT/OT, social security benefits interviewer, respiratory therapy, out of bed/ambulate, DVT proph w/SCDs Continue pulmonary support O2 via NC, home O2 coordination in progress Continue Albuterol MDI Continue Prednisone/Levaquin/Lovenox Robitussin DM 15ml po q4h PRN Isolation protocol Rodríguez catheter due to NWB status LLE CM coordinating for transfer to [facility]
[2020-03-16] MEDS: traZODone HCl 50 MG TAB PO SCH (21:28)
[2020-03-17] MEDS: HYDROcodone/Acetaminophen 5/325 mg Tablet PO PRN ×3 (01:26→12:42)
[2020-03-17 06:31] LABS: ALT (SGPT) 24 U/L (8-55); AST (SGOT) 15 U/L (5-34); Albumin 3.3 g/dL (3.5-5.0); Alkaline Phosphatase 47 U/L (40-110); Anion Gap 13 mmol/L (10-20); BUN (Urea Nitrogen) 21 mg/dL (7.0-18.7); Bilirubin, Total 0.8 mg/dL (0.2-1.2); Calc. Creatinine Clearance 208 mL/min (70-130); Calcium 8.4 mg/dL (7.8-10.44); Carbon Dioxide 28 mmol/L (22-29); Chloride 106 mmol/L (98-107); Estimated GFR-MDRD Greater than 90; Globulin 2.6 g/dL (2.4-3.5); Glucose 88 mg/dL (70-105); Protein, Total 5.9 g/dL (6.0-8.3); Sodium 143 mmol/L (136-145)
[2020-03-17 06:32] LABS: Band 5 % (5-11); Hemoglobin 9.5 g/dL (12.0-16.0); Lymphocytes 32 % (21-51); MDiff Complete? YES; Mean Corpuscular HGB CONC 31.1 g/dL (32.0-36.0); Mean Corpuscular Hemoglobin 22.4 pg (27.0-31.0); Mean Platelet Volume 12.2 fL (7.4-10.4); Monocytes 9 % (0-10); Myelocyte 1 % (0-0); Neutrophil 53 % (42-75); Platelet Count 220 thou/uL (130-400); Platelet Morphology Comment Appears Adequate; RBC Distribution Width 18.8 % (11.5-14.5); Red Blood Cell (RBC) Count 4.26 mill/uL (4.20-5.40); White Blood Cell (WBC) Count 9.3 thou/uL (4.8-10.8)
[2020-03-17] MEDS: Enoxaparin Sodium 40 MG/0.4 ML SYRINGE SC SCH (08:52)
[2020-03-17] MEDS: Senokot S 8.6-50 MG TAB PO SCH (08:53)
[2020-03-17] MEDS: Bupropion 150 MG XL TAB PO SCH (08:53)
[2020-03-17] MEDS: predniSONE 20 MG TAB PO SCH (08:53)
[2020-03-17] MEDS: Zinc Sulfate 220 MG CAP PO SCH (08:53)
[2020-03-17] MEDS: Ascorbic Acid 500 mg Chewable Tablet PO SCH (08:53)
[2020-03-17] MEDS: Ibuprofen 600 MG TAB PO PRN (08:54)
[2020-03-17] MEDS: Lisinopril/Hydrochlorothiazide 20/25 mg Tablet PO SCH (11:16)
[2020-03-17 11:17] VITALS: BP 105/67; TEMP 98.1
[2020-03-17] MEDS: Famotidine 20 MG TAB PO SCH (12:46)
[2020-03-17] MEDS: Cholecalciferol (Vitamin D3) 400 UNITS TAB PO SCH (13:20)
--- NOTE | 2020-03-18 11:46 | DIS ---
DATE OF ADMISSION: 03/08/2020 DATE OF DISCHARGE: 03/17/2020 DISCHARGE DIAGNOSES: 1. Pneumonia due to COVID-19 virus. 2. Acute respiratory failure with hypoxia. 3. Hypertension. 4. Obesity, class 3. 5. Status post total knee replacement. 6. Constipation. BRIEF HOSPITAL COURSE: This is a 50-year-old female with a history of hypertension, who was admitted on account of COVID pneumonia. Prior to presentation, she was referred to orthopedic surgeon and had left total knee replacement a few days prior to presenting to the ED. She was supposed to have revision of total knee replacement, when a chest x-ray revealed bilateral pneumonia and confirmed with CTA, which ruled out pulmonary embolism. She was sent to the ED for COVID management. She received 4 L of oxygen, which was brought down to 2. She also received remdesivir, steroids, and anticoagulation on Lovenox. Her general symptoms improved and on the was discharged to [facility] facility for ongoing treatment. DISCHARGE PHYSICAL EXAMINATION: GENERAL: The patient in bed, 2 L nasal oxygen, in no acute distress. RESPIRATORY SYSTEM: Coarse breath sounds bilaterally. CARDIOVASCULAR SYSTEM: S1 and S2 present. No murmurs, gallops, or rubs. ABDOMEN: Benign. EXTREMITIES: No edema. Left leg in brace. CONSULTATIONS: Pulmonology - Dr. Mark. DISCHARGE DESTINATION: [facility] [place]. DISCHARGE CONDITION: Stable. Job ID: [id number]
== END 2020-03-17 14:00 | disposition swing bed (61) | DRG 177 ==
LOC: IMCU/EMU 21:13 → 2SW 03-11 12:58 → T4-B 03-12 18:40
PROVIDERS: ADMIT Internal Medicine; ATTEND Internal Medicine
PROC: XW033E5 Introduction of Remdesivir Anti-infective into Peripheral Vein, Percutaneous Approach, New Technology Group 5 (ICD-10-PCS; principal; 2020-03-08)
PROC: 8E0ZXY6 Isolation (ICD-10-PCS; 2020-03-09)
PROC: 0T9B70Z Drainage of Bladder with Drainage Device, Via Natural or Artificial Opening (ICD-10-PCS; 2020-03-15)
DX: U07.1 COVID-19 (principal); J12.89 Other viral pneumonia; J96.01 Acute respiratory failure with hypoxia; D62 Acute posthemorrhagic anemia; Z68.42 Body mass index [BMI] 45.0-49.9, adult; G89.29 Other chronic pain; M54.5 Low back pain; M19.90 Unspecified osteoarthritis, unspecified site; Z96.652 Presence of left artificial knee joint; I50.9 Heart failure, unspecified; E87.6 Hypokalemia; E66.01 Morbid (severe) obesity due to excess calories; M47.816 Spondylosis without myelopathy or radiculopathy, lumbar region; I11.0 Hypertensive heart disease with heart failure; K59.01 Slow transit constipation; Z28.21 Immunization not carried out because of patient refusal; Z79.899 Other long term (current) drug therapy
CPT/HCPCS: 36415; 36416; 36600; 71045; 80048; 80053; 80076; 80202; 82728; 83605; 84145; 85007; 85027; 85379; 85652; 86140; 86769; J1650; J1940; J1956; J2405; J2920; J3370; J3480; J7050; J7512; S0028; U0002

== ENCOUNTER 2020-03-28 09:19 | Outpatient (CLI) | payer OTHER ==
[2020-03-28 16:07] LABS: Hemoglobin 8.9 g/dL (12.0-16.0); Mean Corpuscular HGB CONC 30.6 g/dL (32.0-36.0); Mean Corpuscular Hemoglobin 22.5 pg (27.0-31.0); Mean Corpuscular Volume 73.6 fL (78.0-98.0); Mean Platelet Volume 12.8 fL (7.4-10.4); Platelet Count 170 thou/uL (130-400); RBC Distribution Width 19.5 % (11.5-14.5); Red Blood Cell (RBC) Count 3.95 mill/uL (4.20-5.40); White Blood Cell (WBC) Count 8.9 thou/uL (4.8-10.8)
[2020-03-28 16:27] LABS: INR-International Normal Ratio 0.9; Prothrombin Time 12.8 sec (12.0-14.7)
[2020-03-28 16:33] LABS: Anion Gap 17 mmol/L (10-20); BUN (Urea Nitrogen) 14 mg/dL (7.0-18.7); Calc. Creatinine Clearance 0 mL/min (70-130); Calcium 8.8 mg/dL (7.8-10.44); Carbon Dioxide 24 mmol/L (22-29); Chloride 106 mmol/L (98-107); Estimated GFR-MDRD 83; Glucose 89 mg/dL (70-105); Sodium 143 mmol/L (136-145)
[2020-03-29 13:16] LABS: SARS-CoV-2 MS2 Positive; SARS-CoV-2 N Gene Negative; SARS-CoV-2 S Gene Negative; SARS-CoV-2 by NAA Not Detected (NotDetected); SARS-CoV-2 orf1ab Negative
== END 2020-03-28 09:20 | disposition home or self-care (01) ==
LOC: LABBT 09:19
PROVIDERS: ATTEND Orthopaedic Surgery
DX: Z01.818 Encounter for other preprocedural examination (principal); M17.12 Unilateral primary osteoarthritis, left knee; Z20.828 Contact with and (suspected) exposure to other viral communicable diseases
CPT/HCPCS: 80048; 85027; 85610; 87635; 93005; 93010; U0003

== ENCOUNTER 2020-03-28 13:30 | Inpatient (IN) | payer OTHER ==
[2020-04-02] MEDS ORDERED: Ropivacaine 0.2% HCl/PF (40 MG/20 ML VIAL) ONE (09:19)
[2020-04-02] MEDS ORDERED: Esmolol 100 MG/10 ML VIAL ONE (09:19)
[2020-04-02] MEDS ORDERED: Bupivacaine HCl 0.5%/Epinephrine 1:200,000/PF 30 ml Vial ONE (09:19)
[2020-04-02] MEDS ORDERED: Lidocaine 1% PF 5 ML VIAL ONE (09:19)
[2020-04-02] MEDS ORDERED: Glycopyrrolate 0.2 MG/ML 5 ML SYRINGE ONE (09:19)
[2020-04-02] MEDS ORDERED: Dexamethasone 20 MG/5 ML VIAL ONE (09:19)
[2020-04-02] MEDS ORDERED: Rocuronium Bromide 10 MG/ML (10ML VIAL) ONE (09:19)
[2020-04-02] MEDS ORDERED: PROPOFOL 200 MG/20 ML VIAL ONE (09:19)
[2020-04-02] MEDS ORDERED: Ondansetron PF 4 MG/2 ML Vial ONE (09:19)
[2020-04-02] MEDS ORDERED: Midazolam HCl 2 mg/2 ml Vial ONE (12:14)
[2020-04-02] MEDS ORDERED: Fentanyl 100 MCG/2 ML VIAL ONE ×7 (12:14→17:21)
[2020-04-02] MEDS ORDERED: Fentanyl 100 MCG/2 ML VIAL SLOW IVP PRN (13:58)
[2020-04-02] MEDS ORDERED: Ropivacaine HCl/PF 250 ML in Premix Bag 1 BAG NERVE BLCK SCH (14:00)
[2020-04-02] MEDS ORDERED: traMADol HCl 50 MG TAB PO PRN ×2 (14:00)
[2020-04-02] MEDS ORDERED: HYDROcodone/Acetaminophen 10/325 mg Tablet PO PRN ×2 (14:00)
[2020-04-02] MEDS ORDERED: Zolpidem Tartrate 5 MG TAB PO PRN ×3 (14:00→17:55)
[2020-04-02] MEDS ORDERED: Ondansetron PF 4 MG/2 ML Vial IVP PRN ×3 (14:00→17:55)
[2020-04-02] MEDS ORDERED: Promethazine HCl 25 MG/ML VIAL IM PRN ×3 (14:00→17:55)
[2020-04-02] MEDS ORDERED: Morphine 2 MG/ML VIAL SLOW IVP PRN (16:27)
[2020-04-02] MEDS ORDERED: Morphine 4 MG/ML VIAL SLOW IVP PRN (16:27)
[2020-04-02] MEDS ORDERED: diphenhydrAMINE 25 MG CAP PO PRN ×2 (16:27→17:55)
--- NOTE | 2020-04-02 16:54 | RAD ---
LEFT KNEE 2 VIEWS: Date: 04/01/2020 HISTORY: Left revision total knee replacement. FINDINGS/IMPRESSION: There are recent postop changes of total knee arthroplasty in good position and alignment. Soft tissu e air and skin jose are present. POS: OFF
[2020-04-02] MEDS ORDERED: Ketorolac Tromethamine 30 MG/ML VIAL ONE (17:41)
[2020-04-02] MEDS ORDERED: Morphine 4 MG/ML VIAL ONE (17:49)
[2020-04-02] MEDS ORDERED: diphenhydrAMINE 50 MG/ML VIAL IVP PRN (17:55)
[2020-04-02] MEDS ORDERED: Ketorolac Tromethamine 30 MG/ML VIAL IVP PRN (17:55)
[2020-04-02] MEDS ORDERED: Naloxone HCl 0.4 mg/ml Vial IV PRN (17:55)
[2020-04-02] MEDS ORDERED: diphenhydrAMINE 50 MG/ML VIAL IM PRN (17:55)
[2020-04-02] MEDS ORDERED: Communication Order-Pharmacy FS SCH (18:00)
[2020-04-02] MEDS ORDERED: Ketorolac Tromethamine 30 MG/ML VIAL IVP SCH (18:00)
[2020-04-02] MEDS: CEFAZOLIN 2 GM in Premix Bag 1 BAG IVPB SCH (20:24)
[2020-04-02] MEDS: Senokot S 8.6-50 MG TAB PO SCH (20:25)
[2020-04-02] MEDS: Ferrous Gluconate 324 MG TAB PO SCH (20:25)
[2020-04-02] MEDS: Aspirin 81 mg Enteric Coated Tablet PO SCH (20:25)
[2020-04-02] MEDS: Sodium Chloride 0.9% 1,000 ML IV SCH (21:26)
--- NOTE | 2020-04-02 23:34 | OP ---
DATE OF PROCEDURE: 04/02/2020 PREOPERATIVE DIAGNOSIS: Unstable left total knee replacement. POSTOPERATIVE DIAGNOSIS: Unstable left total knee replacement. PROCEDURE: Revision left total knee replacement. ANESTHESIA: General. DESCRIPTION OF PROCEDURE: The patient was given preoperative IV antibiotics, taken to operating room, placed in the supine position. Satisfactory general anesthesia was performed. The left lower extremity was sterilely prepped and draped in usual fashion. After exsanguination, tourniquet was raised to 300 mmHg in the proximal left thigh. A longitudinal incision was made over the anterior aspect of the left knee where the previous surgery had been performed. A medial parapatellar arthrotomy was performed. The fluid inside the knee was sent for culture and sensitivity for thoroughness because the knee did not appear to be infected whatsoever either prior to the incision or once in the knee joint. The knee was evaluated and was extremely unstable and had posterior lateral instability to the knee and could fall back into the posterior lateral aspect of the tibia could fall back posterior lateral to the femur. The distal femur was initially removed using a reciprocating saw and osteotome. Once it was loosened, the distal femur could then be removed. The distal portion of the femoral bone looked good. The polyethylene was removed and then using the reciprocating saw and osteotome, the proximal tibia was removed. The methylmethacrylate under the tibia plate was removed as well as from the intramedullary canal. A guide was then prepared in intramedullary canal of the femur and it was pinned in place to remove 1 or 2 mm from the posterior femur and the posterior chamfer cut was also made. The anterior chamfer and anterior cuts were good from the previous prosthesis. The guide was then placed in the intramedullary femoral guide and the cuts were made for the distal aspect of the femur for the posterior stabilized block. The proximal aspect of the tibia was then revised to remove 1 mm of bone and to remove any the bone spurs from around the proximal tibia. Trials were then inserted and the size B was placed over the femur with the 75 mm straight revision stem that was 15 mm in diameter. The size B stemmed tibial trial was inserted and multiple spacers were used. I added a 10 mm tibial spacer under the tibial tray and then the 19.5 mm tibial insert allowed for full extension of the knee and provided much better stability. The trials were then removed. The patella was checked, it was noted to be in good position and well fixed and did not need revision. The knee joint was then copiously irrigated with antibiotic solution using the high-speed apns. The antibiotic impregnated methylmethacrylate was mixed. The proximal tibial prosthesis was then cemented into place and it was a size B revision stemmed nonporous with a 10 mm tibial spacer and a straight revision stem that was 15 mm in diameter x 75 mm in length. Excess methylmethacrylate was removed around the tibia and the tibial prosthesis was then cemented into place. It was a size B revision femur with a 15 mm in diameter x 75 mm stem. Excess methylmethacrylate was removed from it and the cement was allowed to harden. The 19.5 mm tibial insert was locked into the tibial tray and again the knee was placed through a range of motion with the prosthesis in place and is found to be very stable and had excellent range of motion. There was some laxity in the posterior lateral aspect and using an Arthrex anchor, it was placed into the lateral femoral condyle and #2 FiberWire sutures were placed through the posterolateral tissue as well as the iliotibial band and it was sutured down to the lateral aspect of the femur. This provided much better stability and allowed for good range of motion. A lateral retinacular release had to be performed to allow the patella to ride into the femoral trochlea. The knee joint again was copiously irrigated. It was then closed using #2 Vicryl for the retinacular tissue, 0 Vicryl for the fat and subcutaneous tissue, and skin was closed with skin jose. Sterile dressing was applied. The tourniquet was released. The patient was awakened, extubated, and transferred to recovery room in stable condition. ESTIMATED BLOOD LOSS: 100 mL. COMPLICATIONS: None. TOURNIQUET TIME: 114 minutes. Job ID: [id number]
[2020-04-03] MEDS: Sodium Chloride 0.9% 1,000 ML IV SCH ×3 (02:51→23:46)
[2020-04-03 04:17] VITALS: BMI 49.6
[2020-04-03] MEDS: CEFAZOLIN 2 GM in Premix Bag 1 BAG IVPB SCH (04:55)
[2020-04-03 07:05] LABS: Hemoglobin 7.9 g/dL (12.0-16.0); Mean Corpuscular HGB CONC 30.7 g/dL (32.0-36.0); Mean Corpuscular Hemoglobin 22.9 pg (27.0-31.0); Mean Corpuscular Volume 74.6 fL (78.0-98.0); Mean Platelet Volume 11.2 fL (7.4-10.4); Platelet Count 186 thou/uL (130-400); RBC Distribution Width 19.7 % (11.5-14.5); Red Blood Cell (RBC) Count 3.46 mill/uL (4.20-5.40); White Blood Cell (WBC) Count 7.4 thou/uL (4.8-10.8)
[2020-04-03] MEDS: Aspirin 81 mg Enteric Coated Tablet PO SCH ×2 (07:54→20:17)
[2020-04-03] MEDS: Senokot S 8.6-50 MG TAB PO SCH ×2 (07:54→20:17)
[2020-04-03] MEDS: Ferrous Gluconate 324 MG TAB PO SCH ×2 (07:54→20:17)
[2020-04-03] MEDS: Multivitamin W/ Minerals 1 TAB PO SCH (07:54)
[2020-04-03] MEDS: Acetaminophen 325 MG TAB PO PRN ×3 (09:52→23:47)
[2020-04-03] MEDS: fentaNYL Citrate/PF 2,000 MCG in Sodium Chloride 0.9% 60 ML IV PRN (16:25)
--- NOTE | 2020-04-03 20:02 | PRG ---
DATE OF SERVICE: 04/03/2020 SUBJECTIVE: The patient is 1 day status post revision of left total knee replacement. The patient states that she was able to get up with physical therapy this morning. She has a little bit of dizziness when she first gets up, but that resolves very quickly. She has pain, but it is being controlled with the pain medicine. OBJECTIVE: VITAL SIGNS: The patient has been afebrile. Her last vital signs, pulse 104, respiratory rate 14, blood pressure 117/76, and O2 saturation 96% on room air. LABORATORY DATA: Laboratory shows hemoglobin 7.9 and hematocrit 25.8. Left lower extremity is neurovascularly intact. The patient is able to flex and extend her toes in her left foot and has good dorsiflexion, plantar flexion of her ankle. PLAN: The patient needs to work with Physical and Occupational Therapy. She can weightbear as tolerated on left lower extremity. They can work on range of motion. We will recheck her hemoglobin tomorrow. Job ID: [id number]
[2020-04-04 05:57] LABS: Hemoglobin 7.1 g/dL (12.0-16.0); Mean Corpuscular Hemoglobin 23.2 pg (27.0-31.0); Mean Corpuscular Volume 74.8 fL (78.0-98.0); Mean Platelet Volume 12.1 fL (7.4-10.4); Platelet Count 156 thou/uL (130-400); Red Blood Cell (RBC) Count 3.05 mill/uL (4.20-5.40); White Blood Cell (WBC) Count 7.4 thou/uL (4.8-10.8)
[2020-04-04] MEDS: Senokot S 8.6-50 MG TAB PO SCH ×2 (08:03→21:34)
[2020-04-04] MEDS: Aspirin 81 mg Enteric Coated Tablet PO SCH ×2 (08:03→21:33)
[2020-04-04] MEDS: Multivitamin W/ Minerals 1 TAB PO SCH (08:03)
[2020-04-04] MEDS: Ferrous Gluconate 324 MG TAB PO SCH ×2 (08:03→21:33)
[2020-04-04] MEDS ORDERED: Senokot 8.6 MG TAB PO PRN (13:07)
[2020-04-04] MEDS ORDERED: traMADol HCl 50 MG TAB PO PRN (13:07)
[2020-04-04] MEDS ORDERED: Acetaminophen 650 MG/20.3 ML UDCUP PO PRN (13:07)
[2020-04-04] MEDS: Acetaminophen 325 MG TAB PO PRN (13:22)
[2020-04-04] MEDS: Sodium Chloride 0.9% 1,000 ML IV SCH ×2 (16:22→19:30)
[2020-04-04] MEDS ORDERED: traZODone HCl 50 MG TAB PO SCH (21:00)
[2020-04-04] MEDS: Famotidine 20 MG TAB PO SCH (21:33)
[2020-04-04] MEDS: Lisinopril 5 MG TAB PO SCH (21:34)
[2020-04-04] MEDS: fentaNYL Citrate/PF 2,000 MCG in Sodium Chloride 0.9% 60 ML IV PRN (23:12)
[2020-04-05] MEDS: Sodium Chloride 0.9% 1,000 ML IV SCH (03:57)
[2020-04-05 07:22] LABS: Hemoglobin 7.4 g/dL (12.0-16.0); Mean Corpuscular HGB CONC 31.3 g/dL (32.0-36.0); Mean Corpuscular Hemoglobin 23.3 pg (27.0-31.0); Mean Corpuscular Volume 74.2 fL (78.0-98.0); Mean Platelet Volume 9.2 fL (7.4-10.4); Platelet Count 185 thou/uL (130-400); RBC Distribution Width 19.6 % (11.5-14.5); Red Blood Cell (RBC) Count 3.17 mill/uL (4.20-5.40); White Blood Cell (WBC) Count 8.1 thou/uL (4.8-10.8)
[2020-04-05] MEDS ORDERED: Bupropion 150 MG XL TAB PO SCH (09:00)
[2020-04-05] MEDS ORDERED: Polyethylene Glycol 3350 17 GM Packet PO SCH (09:00)
[2020-04-05] MEDS ORDERED: Zinc Sulfate 220 MG CAP PO SCH (09:00)
[2020-04-05] MEDS ORDERED: Cholecalciferol (Vitamin D3) 400 UNITS TAB PO SCH (09:00)
[2020-04-05] MEDS ORDERED: Ascorbic Acid 500 mg Chewable Tablet PO SCH (09:00)
[2020-04-05] MEDS: Multivitamin W/ Minerals 1 TAB PO SCH (09:57)
[2020-04-05] MEDS: Famotidine 20 MG TAB PO SCH (09:58)
[2020-04-05] MEDS: Aspirin 81 mg Enteric Coated Tablet PO SCH (09:58)
[2020-04-05] MEDS: Senokot S 8.6-50 MG TAB PO SCH (09:58)
[2020-04-05] MEDS: Lisinopril 5 MG TAB PO SCH (09:59)
[2020-04-05] MEDS: Ferrous Gluconate 324 MG TAB PO SCH (09:59)
[2020-04-05] MEDS ORDERED: HYDROcodone/Acetaminophen 10/325 mg Tablet PO PRN ×2 (11:41)
[2020-04-05] MEDS ORDERED: traMADol HCl 50 MG TAB PO PRN (11:42)
[2020-04-05 14:01] VITALS: BP 125/85; TEMP 98.7
--- NOTE | 2020-04-06 10:33 | DIS ---
DATE OF ADMISSION: 04/02/2020 DATE OF DISCHARGE: 04/05/2020 HISTORY OF PRESENT ILLNESS: Please see admission history and physical. HOSPITAL COURSE: The patient was previously operated on her left knee. 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 Unfortunately, the day after she had that surgery about 5 weeks ago, developed COVID pneumonia, was followed by control room operator, was eventually able to be discharged out of the hospital and has been in the swing bed in [place]. She has been unable to weight bear on the left lower extremity because of the instability. The patient finally was stable enough to undergo surgery. She was brought back to the hospital 2 days ago on 04/02/2020. She was given perioperative IV antibiotics and underwent a revision left total knee replacement, which fortunately was very stable. She started with physical and occupational therapy here in the hospital. She is making slow progress, but fortunately she is able to be transferred back to the [facility] in [place] for continued Physical and Occupational Therapy. Her left lower extremity remained neurovascularly intact. Her hemoglobin the day after surgery 7.9, and on date of discharge is 7.1, but the patient was not orthostatic. Her last vital signs shows temperature 97.6, and the patient did remain afebrile. Pulse is 96, respiratory rate 18, blood pressure 138/81, and she has 97% saturation on room air. Plans were made for the patient to be discharged and be transferred back to [place] [facility] to improve her strength and range of motion, ambulatory ability. The patient will take iron for her anemia. DISCHARGE DIAGNOSES: 1. Unstable left total knee replacement, required revision total knee. 2. Anemia secondary to expected blood loss from surgery. Follow up in my office in 2 weeks. The patient will continue with a regular diet and will gradually increase activity as tolerated with the therapist there in [place]. Job ID: [id number]
== END 2020-04-05 14:23 | DRG 467 ==
LOC: SURG A 04-02 10:52 → SJJU 04-02 18:57
PROVIDERS: ADMIT Orthopaedic Surgery; ATTEND Orthopaedic Surgery
PROC: 0SPW0JZ Removal of Synthetic Substitute from Left Knee Joint, Tibial Surface, Open Approach (ICD-10-PCS; principal; 2020-04-02)
PROC: 0SRW0J9 Replacement of Left Knee Joint, Tibial Surface with Synthetic Substitute, Cemented, Open Approach (ICD-10-PCS; 2020-04-02)
DX: T84.89XA Other specified complication of internal orthopedic prosthetic devices, implants and grafts, initial encounter (principal); D62 Acute posthemorrhagic anemia; Z68.42 Body mass index [BMI] 45.0-49.9, adult; Z96.652 Presence of left artificial knee joint; I11.0 Hypertensive heart disease with heart failure; I50.9 Heart failure, unspecified; Z20.828 Contact with and (suspected) exposure to other viral communicable diseases; M19.90 Unspecified osteoarthritis, unspecified site; E66.01 Morbid (severe) obesity due to excess calories; F32.9 Major depressive disorder, single episode, unspecified; F41.9 Anxiety disorder, unspecified; Y83.8 Other surgical procedures as the cause of abnormal reaction of the patient, or of later complication, without mention of misadventure at the time of the procedure; Z79.899 Other long term (current) drug therapy
CPT/HCPCS: 36415; 85027; 86850; 86900; 86901; 87070; 87205; C1713; C1776; J0690; J1100; J1885; J2250; J2270; J2405; J2704; J2795; J3010; J3490

== ENCOUNTER 2023-08-06 14:05 | Emergency (ER) | payer OTHER ==
[2023-08-06] MEDS ORDERED: predniSONE 20 MG TAB ONE ×2 (15:30→15:31)
[2023-08-06] MEDS ORDERED: Ondansetron ODT 4 MG TAB ONE (15:30)
[2023-08-06] MEDS ORDERED: Morphine 4 MG/ML VIAL ONE (15:30)
[2023-08-06 16:21] LABS: Bacteria/HPF None Seen HPF (None Seen); Bilirubin Negative (Negative); Blood, Urine Negative (Negative); CAUTI Indications for Culture Pelvic or flank pain; Clarity Clear (Clear); Glucose, Urine (Dipstick) Normal (Negative); Ketone, Urine Negative (Negative); Leukocyte Negative Leu/uL (Negative); Nitrite Negative (Negative); Protein, Urine (Dipstick) Negative (Neg-Trace); RBC/HPF 0-3 HPF (0-3); Specific Gravity, Urine 1.025 (1.002-1.036); Urobilinogen Normal mg/dL (Less than 2); WBC/HPF 0-3 HPF (0-3)
[2023-08-06 16:29] LABS: Urine Culture Reflex No No
== END 2023-08-06 16:17 | disposition home or self-care (01) ==
LOC: ERS 14:05
DX: M54.41 Lumbago with sciatica, right side (principal); I10 Essential (primary) hypertension; Z55.6 Problems related to health literacy
CPT/HCPCS: 81001; 96372; 99283; J2270; J7512; Q0162